=== PATIENT | male | born 1965 | race Caucasian/White ===

== ENCOUNTER 2018-08-18 08:02 | Day surgery (SDC) | payer OTHER, SELFPAY ==
[2017-07-14 16:20] VITALS: BMI 29.7
[2018-08-05 08:07] VITALS: BMI 29.5
[2018-08-18] VITALS (8 sets, daily range): BP systolic 119–148; BP diastolic 86–99; PULSE 78–84; RESP 12–20; TEMP 36.2–36.5; O2SAT 92–96; BMI 29.6
[2018-08-18] MEDS: LACTATED RINGERS 1,000 ML 42 ML IV (09:06)
[2018-08-18] MEDS: ALBUTEROL 2.5 MG/3 ML NEB (ADULT) INH (09:48)
[2018-08-18] MEDS: CEFAZOLIN 2 GM/100 ML FROZ.PIGGY IV (10:24)
[2018-08-18] MEDS: BUPIVACAINE 0.5% W/ EPI (PF) VIAL 30 ML INJ (11:06)
--- NOTE | 2018-08-18 12:05 | P.OP_ITS ---
Operative Date/Time/Diagnoses Date of procedure: 08/18/18 Time of procedure: 10:30 Pre-op diagnosis: Left basal thumb arthritis Post-op diagnosis: same Procedure & Clinicians Procedure: Left basal thumb LR TI using labral tape Same procedure as scheduled: Yes Indications: Arthritis to the left basal joint Surgeon: Roger Abernathy Cupola Repairer: Heather Salas Click Yes if Unassisted: No Anesthesia Type: General Operative Notes Findings: End-stage arthritic changes to the basal joint with large osteophytes. Closure Type: primary Specimen(s): none sent Prosthetic devices, grafts, tissues, transplants, or devices: Labral tape and 2 anchors Estimated Blood Loss (mL): 5 Blood products transfused: none Tourniquet time (min): 70 Procedure in detail: On date of service, the patient was met in the holding area. The operative site was signed and witnessed by the OR staff. The surgery was once again discussed with patient, and any remaining questions Were answered fully. Patient was taken back to the operating theater and placed on the operating table in a supine position. Great care was taken to ensure that all bony prominences were properly padded. A well-padded tourniquet was placed up along the upper extremity. A timeout was performed verifying patient's name, procedure, and operative site. The arm was prepped and draped in the normal sterile fashion. An Esmarch was used to exsanguinate the limb and the tourniquet was turned up to 250 mm mercury. A 15 blade was used to incise the skin only in a dorsal radial position. Pickups and tenotomy 3 used to dissect down through the fascial tissue. Great care was taken to ensure that the branches off the superficial radial nerve root identified and protected. Next, an interval was made between EPB and APL. The recurrent branch of the radial artery was identified and protected. The capsular tissues surrounding the basal joints was opened and released around the trapezium and a 360? fashion. This gave us good visualization of the basal joint as well as the trapezial scaphoid joint. Significant arthritis at the basal joints but no sign of any arthritis at the trapezial scaphoid joint. Next the trapezium was removed as well as any potential osteophytes. The wound was then copiously irrigated to remove any remaining bony fragments. A strip of FCR tendon was harvested. Guidewires were placed in the articular surface of the 1st and 2nd metacarpal. Positioning of the guidewires were verified with the mini C-arm. Once we were satisfied with our positioning, cannulated drill was then used to drill the tunnels for the anchors. The wound was copiously irrigated again. This allowed us to remove any remaining bony fragments. An anchor was then used to tenodesis 2 strands of labral tape as well as our tendon strip into the 1st metacarpal. The thumb was then distracted in adducted while the 2 strips of labral tape and the tendons were then tenodesed into the 2nd hole which was in the 2nd metacarpal. This provided a good suspension plasty of the basal joint and held the thumb out to the appropriate length. The wound was copiously irrigated once again and then closed in a layered fashion. The hand was cleaned, dried, and dressed. Thumb spica splint was applied patient was extubated and taken to the PACU in stable condition. Complications: none Condition: stable Disposition: PACU Plan for aftercare: Splint for 2 weeks. After 2 weeks a removable brace will be placed.
[2018-08-18] MEDS: HYDROMORPHONE 2 MG INJ 0.25 MG IV ×4 (12:18→12:42)
== END 2018-08-18 12:57 | disposition home or self-care (01) ==
PROVIDERS: PCP Preventive Medicine Occupational Medicine; Visit Provider Orthopaedic Surgery
PROC: (CPT 26540; principal; 2018-08-18 10:15)
DX: M18.10 Unilateral primary osteoarthritis of first carpometacarpal joint, unspecified hand (principal)
CPT/HCPCS: 25310; 25447; J0690; J1100; J1170; J2405; J2704; J3010; J7613

== ENCOUNTER → 2019-11-28 17:43 | Outpatient (CLI) | payer BC, SELFPAY ==
[2017-07-14 16:20] VITALS: BMI 29.7
--- NOTE | 2019-11-28 17:48 | DI.CT.S_ITS ---
PROCEDURE: CT ABDOMEN PELVIS W CON INDICATIONS: Lower abdominal pain, unspecified TECHNIQUE: After the administration of oral and intravenous contrast, 5 mm thick sections acquired from the diaphragms to the symphysis. 5 mm thick coronal and sagittal reformats were performed. For radiation dose reduction, the following was used: automated exposure control, adjustment of mA and/or kV according to patient size. COMPARISON: None. FINDINGS: Image quality: Excellent. ABDOMEN: Lung bases: Lung bases are clear. Heart size is normal. Solid organs: Liver is normal in size and enhancement. Gallbladder is within normal limits.. Biliary system is non-dilated. Pancreas enhances normally. Spleen is normal in size and enhancement. No adrenal nodules. Kidneys are normal in size and enhancement, without hydronephrosis. 3 millimeter nonobstructing stone noted in the lower pole of left kidney. Peritoneum and bowel: Stomach and small bowel are normal in caliber and wall thickness. Scattered diverticuli noted in the sigmoid colon without definite evidence of diverticulitis. Circumferential wall thickening involving the distal transverse colon, splenic flexure, left colon and sigmoid colon noted compatible with nonspecific colitis. No free air. Trace free fluid lower pelvis. Appendix is normal. Nodes and vessels: No retroperitoneal or mesenteric adenopathy. Aorta and inferior vena cava are normal in caliber. Miscellaneous: No ventral hernias. PELVIS: Genitourinary: Bladder wall thickness is normal. Miscellaneous: No inguinal hernias or adenopathy. Bones: No suspicious bony lesions. No vertebral body compression fractures. IMPRESSION: 1. Nonspecific colitis. Differential diagnosis includes infectious, inflammatory, ischemic and neoplastic etiologies. 2. Colon diverticulosis without evidence of diverticulitis. 3. No free air. Trace free fluid noted in the lower pelvis. 4. No evidence of appendicitis. Area 5. 3 millimeter nonobstructing left renal stone. Dictated by: Amena Neff MD, PhD on 11/28/2019 at 19:10 Approved by: Amena Neff MD, PhD on 11/28/2019 at 19:17
== END ==
PROVIDERS: PCP Family Medicine; Referring Provider Physician Assistant Medical; Visit Provider Physician Assistant Medical
DX: R10.30 Lower abdominal pain, unspecified (principal); K52.9 Noninfective gastroenteritis and colitis, unspecified; K57.90 Diverticulosis of intestine, part unspecified, without perforation or abscess without bleeding; N20.0 Calculus of kidney
CPT/HCPCS: 74177; Q9967

== ENCOUNTER 2019-12-01 12:09 | Inpatient (IN) | payer BC, SELFPAY ==
[2017-07-14 16:20] VITALS: BMI 29.7
[2019-12-01] VITALS (17 sets, daily range): BP systolic 126–157; BP diastolic 81–100; PULSE 77–105; RESP 13–25; TEMP 36.1–36.8; O2SAT 90–99; BMI 29.6
--- NOTE | 2019-12-01 12:41 | ED.ABDPAIN ---
HPI - Abdominal Pain General Chief Complaint: Abdominal Pain Stated Complaint: colitis,vomiting,pain Time Seen by Provider: 12/01/19 12:33 Source: patient Mode of arrival: Wheelchair History of Present Illness HPI narrative: Otherwise healthy 54-year-old gentleman presents with worsening abdominal pain. Pain began 4 days ago with mild discomfort. Three days ago he was seen in urgent care at [facility] and a CT scan was ordered. CT scan suggested a nonspecific colitis and he was started on antibiotics. He felt somewhat better for approximately 24 hours and then pain was again increasing. By this morning he is having persistent vomiting, abdominal distension, increasing pain, diarrhea and while waiting in the waiting room for the emergency department he describes a significant ?pop? in his abdomen. He currently is pale obviously in pain and profusely diaphoretic with hyperactive bowel tones. Related Data Home Medications Medication Instructions Recorded Confirmed ibuprofen 800 mg PO BEDTIME PRN 06/29/17 08/18/18 Previous Rx's Medication Instructions Recorded hydroxyzine pamoate [Vistaril] 25 mg PO TID-QID PRN #60 cap 08/18/18 oxycodone-acetaminophen [Percocet] 2 tab PO Q4-6H PRN #60 tab 08/18/18 Allergies Allergy/AdvReac Type Severity Reaction Status Date / Time No Known Drug Allergies Allergy Verified 12/01/19 12:14 Review of Systems Review of Systems Narrative: Remainder of review of systems including constitutional, ENT, cardiovascular, respiratory, GI, , musculoskeletal, skin, neurologic and psychiatric systems reviewed and are unremarkable except as noted in HPI. Patient History Medical History Arthritis (Acute) Colonoscopy planned (Acute) Diverticulosis (Acute) Gout (Acute) Nocturia (Acute) Numbness and tingling in both hands (Acute) Unilateral primary osteoarthritis of first carpometacarpal joint, unspecified hand (Acute) Surgical History H/O inguinal hernia repair (Acute) History of carpal tunnel surgery of left wrist (Acute) Hx of tonsillectomy (Acute) S/P cervical spinal fusion (Acute) [place] teeth removed (Acute) Social History household members: spouse Smoking Status: Current every day smoker alcohol intake: current Smoking Status: Current every day smoker alcohol intake frequency: 0-2 drinks per day Substance Use Type: marijuana Exam Narrative Exam Narrative: General: Significant distress with abdominal pain, profusely diaphoretic, pale but Able to give a complete and coherent history. Well-nourished well-developed HEENT: Moist mucous membranes, normal sclera with reactive pupils, Neck: No JVD, supple Respiratory: Lungs are clear to auscultation, no wheezing no rales no rhonchi. Full and symmetrical air movement Cardiac: Regular rate and rhythm no murmurs no bruits Abdomen: Mildly distended, diffusely tender without rebound or guarding, hyperactive bowel tones, no flank pain Skin: Pale and diaphoretic, no rashes Neurologic: Grossly neurologically intact with no obvious asymmetries or abnormalities Extremities: No trauma, well perfused Psych: Cooperative, appropriate insight and affect Initial Vital Signs Initial Vital Signs: Vital Signs Temperature 97 F L 12/01/19 12:14 Pulse Rate 105 H 12/01/19 12:14 Respiratory Rate 16 12/01/19 12:14 Pulse Oximetry 99 12/01/19 12:14 Course Orders Ordered: ED Orders 12/01/19 12:15 EKG-12 Lead Stat 12/01/19 12:39 Complete Blood Count AUTO DIFF Stat Comprehensive Metabolic Panel Stat Lactate (Lactic Acid) Stat Lipase Stat Magnesium Stat Partial Thromboplastin Time Stat Procalcitonin Stat Prothrombin Time INR Stat 12/01/19 12:53 CT abdomen pelvis w con Stat 12/01/19 13:00 GI Panel (Film Array) Stat 12/01/19 13:09 Blood Culture Stat 12/01/19 15:19 Urine Microscopic Stat 12/01/19 15:51 COVID19 -ED/INPAT/OR/L&D Stat Discontinued Medications Hydromorphone HCl (Dilaudid) 1 mg IV NOW ONE Stop: 12/01/19 12:53 Last Admin: 12/01/19 13:18 Dose: 1 mg Documented by: HUMPHREY Hydromorphone HCl (Dilaudid) 1 mg IV NOW ONE Stop: 12/01/19 14:59 Last Admin: 12/01/19 15:01 Dose: 1 mg Documented by: HUMPHREY Sodium Chloride (Normal Saline 0.9%) 1,000 mls @ 1,000 mls/hr IV BOLUS ONE Stop: 12/01/19 13:51 Last Admin: 12/01/19 13:18 Dose: 1,000 mls/hr Documented by: HUMPHREY Levofloxacin (Levaquin) 750 mg in 150 mls @ 100 mls/hr IV NOW ONE Stop: 12/01/19 14:22 Last Admin: 12/01/19 14:49 Dose: 100 mls/hr Documented by: HUMPHREY Metronidazole (Flagyl) 500 mg in 100 mls @ 100 mls/hr IV NOW ONE Stop: 12/01/19 13:52 Last Infusion: 12/01/19 14:44 Dose: 0 mls/hr Documented by: Admin: 12/01/19 13:19 Dose: 100 mls/hr Documented by: HUMPHREY Sodium Chloride (Normal Saline 0.9%) 1,000 mls @ 1,000 mls/hr IV BOLUS ONE Stop: 12/01/19 14:54 Last Admin: 12/01/19 15:41 Dose: 1,000 mls/hr Documented by: Ondansetron HCl (Zofran) 4 mg IV NOW ONE Stop: 12/01/19 12:53 Last Admin: 12/01/19 13:19 Dose: 4 mg Documented by: HUMPHREY Vital Signs Vital signs: Vital Signs - 8 hr 12/01/19 12:14 12/01/19 12:46 12/01/19 12:59 Temperature 97 F L Pulse Rate 105 H 95 H 93 H Respiratory Rate 16 20 19 Blood Pressure 151/100 H 152/98 H Pulse Oximetry 99 96 96 12/01/19 13:00 12/01/19 13:24 12/01/19 13:30 Temperature Pulse Rate 93 H 88 85 Respiratory Rate 19 23 25 H Blood Pressure 147/90 H Pulse Oximetry 95 93 92 12/01/19 13:31 12/01/19 14:07 12/01/19 14:10 Temperature Pulse Rate 86 89 87 Respiratory Rate 20 21 Blood Pressure 142/100 H 146/95 H Pulse Oximetry 94 94 94 12/01/19 14:30 12/01/19 15:00 Temperature Pulse Rate 82 80 Respiratory Rate 14 23 Blood Pressure 135/92 H 138/91 H Pulse Oximetry 94 95 MDM - Abdominal Pain Lab Data Attestation: I reviewed the patient's lab results. Result diagrams: 12/01/19 12:39 12/01/19 12:39 Labs: Lab Results 12/01/19 12/01/19 12/01/19 Range/Units 12:39 12:39 12:39 WBC 13.4 H (4.5-11.0) X10^3/uL RBC 6.43 H (4.5-5.9) X10^6/uL Hgb 20.5 H (13.5-17.5) g/dL Hct 58.6 H (41-53) % MCV 91.1 (80-100) fL MCH 31.9 (26-34) PG MCHC 35.0 (30-36) % RDW 13.4 (11.6-14.8) % Plt Count 348 (150-400) X10^3/uL Neut % (Auto) Not Reportable Lymph % (Auto) Not Reportable Preston % (Auto) Not Reportable Eos % (Auto) Not Reportable Baso % (Auto) Not Reportable Lymph # (Auto) Not Reportable Preston # (Auto) Not Reportable Baso # (Auto) Not Reportable Total Counted 100 Seg Neutrophils % 78.0 H (38-70) % Band Neutrophils % 2.0 L (3-7) % Lymphocytes % (Manual) 8.0 L (25-45) % Atypical Lymphs % 4.0 H ( - 0) % Monocytes % (Manual) 6.0 (2-11) % Eosinophils % (Manual) 2.0 (2-4) % Neutrophils # (Manual) 16368 H (6969-7145) /uL RBC Morphology Normal morphology PT 11.6 (10.1-12.7) SECONDS INR 1.0 (0.9-1.3) APTT 38 H (26.4-36.2) SECONDS Sodium 138 (137-145) mmol/L Potassium 4.5 (3.4-5.1) mmol/L Chloride 98 (98-107) mmol/L Carbon Dioxide 26 (22-32) mmol/L BUN 16 (9-20) mg/dL Creatinine 0.81 (0.66-1.25) mg/dL Estimated GFR > 60.0 (>60) mL/min BUN/Creatinine Ratio 19.8 (6-22) Glucose 112 H (70-100) mg/dL Calcium 10.4 H (8.4-10.2) mg/dL Magnesium (1.6-2.3) mg/dL Total Bilirubin 0.9 (0.2-1.3) mg/dL AST 25 (17-59) IU/L ALT 32 (<50) IU/L Alkaline Phosphatase 92 (38-126) U/L Total Protein 8.8 H (6.3-8.2) g/dL Albumin 5.1 H (3.5-5.0) g/dL Globulin 3.7 (1.7-4.1) g/dL Albumin/Globulin Ratio 1.4 (1.0-2.8) Lipase 72 (23-300) U/L Procalcitonin (<0.5) ng/mL 12/01/19 12/01/19 Range/Units 12:39 12:39 WBC (4.5-11.0) X10^3/uL RBC (4.5-5.9) X10^6/uL Hgb (13.5-17.5) g/dL Hct (41-53) % MCV (80-100) fL MCH (26-34) PG MCHC (30-36) % RDW (11.6-14.8) % Plt Count (150-400) X10^3/uL Neut % (Auto) Lymph % (Auto) Preston % (Auto) Eos % (Auto) Baso % (Auto) Lymph # (Auto) Preston # (Auto) Baso # (Auto) Total Counted Seg Neutrophils % (38-70) % Band Neutrophils % (3-7) % Lymphocytes % (Manual) (25-45) % Atypical Lymphs % ( - 0) % Monocytes % (Manual) (2-11) % Eosinophils % (Manual) (2-4) % Neutrophils # (Manual) (0433-3193) /uL RBC Morphology PT (10.1-12.7) SECONDS INR (0.9-1.3) APTT (26.4-36.2) SECONDS Sodium (137-145) mmol/L Potassium (3.4-5.1) mmol/L Chloride (98-107) mmol/L Carbon Dioxide (22-32) mmol/L BUN (9-20) mg/dL Creatinine (0.66-1.25) mg/dL Estimated GFR (>60) mL/min BUN/Creatinine Ratio (6-22) Glucose (70-100) mg/dL Calcium (8.4-10.2) mg/dL Magnesium 2.5 H (1.6-2.3) mg/dL Total Bilirubin (0.2-1.3) mg/dL AST (17-59) IU/L ALT (<50) IU/L Alkaline Phosphatase (38-126) U/L Total Protein (6.3-8.2) g/dL Albumin (3.5-5.0) g/dL Globulin (1.7-4.1) g/dL Albumin/Globulin Ratio (1.0-2.8) Lipase Cancelled (23-300) U/L Procalcitonin < 0.05 (<0.5) ng/mL Point of care testing: Urine Dip Bedside Urine Glucose Negative Bedside Urine Bilirubin + 1 Bedside Urine Ketone +/- 5 Urine Specific Buras 1.010 Bedside Urine Occult Blood - Negative Bedside Urine pH 6.0 Bedside Urine Protein + 30 Bedside Urine Urobilinogen +/- 1mg Bedside Urine Nitrite - Negative Bedside Urine Leukocytes - Negative Esterase Imaging Data Abdominal CT from 11/28/2019: Radiologist's Impression: FINDINGS: Image quality: Excellent. ABDOMEN: Lung bases: Lung bases are clear. Heart size is normal. Solid organs: Liver is normal in size and enhancement. Gallbladder is within normal limits.. Biliary system is non-dilated. Pancreas enhances normally. Spleen is normal in size and enhancement. No adrenal nodules. Kidneys are normal in size and enhancement, without hydronephrosis. 3 millimeter nonobstructing stone noted in the lower pole of left kidney. Peritoneum and bowel: Stomach and small bowel are normal in caliber and wall thickness. Scattered diverticuli noted in the sigmoid colon without definite evidence of diverticulitis. Circumferential wall thickening involving the distal transverse colon, splenic flexure, left colon and sigmoid colon noted compatible with nonspecific colitis. No free air. Trace free fluid lower pelvis. Appendix is normal. Nodes and vessels: No retroperitoneal or mesenteric adenopathy. Aorta and inferior vena cava are normal in caliber. Miscellaneous: No ventral hernias. PELVIS: Genitourinary: Bladder wall thickness is normal. Miscellaneous: No inguinal hernias or adenopathy. Bones: No suspicious bony lesions. No vertebral body compression fractures. IMPRESSION: 1. Nonspecific colitis. Differential diagnosis includes infectious, inflammatory, ischemic and neoplastic etiologies. 2. Colon diverticulosis without evidence of diverticulitis. 3. No free air. Trace free fluid noted in the lower pelvis. 4. No evidence of appendicitis. Area 5. 3 millimeter nonobstructing left renal stone. Dictated by: Amena Neff MD, PhD on 11/28/2019 at 19:[address] scan from 12/01/2019: Radiologist's Impression: FINDINGS: Image quality: Excellent. ABDOMEN: Lung bases: Minimal right basilar atelectasis versus scarring, unchanged. Heart size is normal. Solid organs: Liver is normal in size and enhancement. Gallbladder is unremarkable . Biliary system is non-dilated. Pancreas enhances normally. Spleen is normal in size and enhancement. No adrenal nodules. Kidneys are normal in size and enhancement, without hydronephrosis. Peritoneum and bowel: Comparison is made to the prior study dated 11/28/19. The descending colon is now filled with contrast. At the rectosigmoid junction, the appearance is now suspicious for a possible circumferential colon cancer resulting in mild colonic obstruction. This occurs in an area of diffuse wall thickening throughout the sigmoid with multiple sigmoid diverticuli. It is possible that the findings may all represent diverticulitis. However, underlying neoplasm is suspected. The colon proximal to the rectosigmoid junction is now diffusely dilated. The cecum measures 10.0 cm. There is a 2nd area of circumferential narrowing at the rectosigmoid junction which may potentially represent peristalsis. However, a rectosigmoid lesion is not excluded. Nodes and vessels: No retroperitoneal or mesenteric adenopathy. Aorta and inferior vena cava are normal in caliber. Scattered somewhat prominent mesenteric lymph nodes are likely reactive in nature. Miscellaneous: No ventral hernias. PELVIS: Genitourinary: Bladder wall thickness is normal. Miscellaneous: No inguinal hernias or adenopathy. Bones: No suspicious bony lesions. No vertebral body compression fractures. IMPRESSION: 1. On today's study, the appearance is now suspicious for a possible constricting colonic malignancy at the junction between the descending colon and sigmoid, resulting in a degree of colonic obstruction. Alternatively, this appearance may simply represent diverticulitis. Direct visualization with colonoscopy is recommended when clinical symptomatology allows 2. There is also a possible constricting rectosigmoid lesion. 3. No evidence of metastatic disease. Dictated by: Osmin Mckeon M.D. on 12/01/2019 at 14:34 MDM Narrative Medical decision making narrative: 2pm patient's fluids or just getting started. Pain is better controlled. He is no longer profusely diaphoretic. Labs do indicate significant volume constriction will add a 2nd L of fluid while waiting for CT scan results. [address] Antunez. Will admit pt and come to ER to see patient. colonic obstruction. Admit for further diagnosis and treatment. Care, plan and findings are discussed with patient and his . Safe for transfer to the floor. Discharge Plan Departure Patient Disposition: Admitted As Inpatient Clinical Impression: Colitis, Colon obstruction Referrals: Thiago Patel MD [Primary Care Provider] -
--- NOTE | 2019-12-01 12:45 | PC.NURSE ---
Provider aware of patient. Restless, pain and diaphoretic. Reports feeling like something burst
--- NOTE | 2019-12-01 12:53 | DI.CT.S_ITS ---
PROCEDURE: CT ABDOMEN PELVIS W CON INDICATIONS: worsening pain, compare to CT 11/27 TECHNIQUE: After the administration of oral and intravenous contrast, 5 mm thick sections acquired from the diaphragms to the symphysis. 5 mm thick coronal and sagittal reformats were performed. For radiation dose reduction, the following was used: automated exposure control, adjustment of mA and/or kV according to patient size. COMPARISON: [facility], CT, CT ABDOMEN PELVIS W CON, 11/28/2019, 18:55. FINDINGS: Image quality: Excellent. ABDOMEN: Lung bases: Minimal right basilar atelectasis versus scarring, unchanged. Heart size is normal. Solid organs: Liver is normal in size and enhancement. Gallbladder is unremarkable . Biliary system is non-dilated. Pancreas enhances normally. Spleen is normal in size and enhancement. No adrenal nodules. Kidneys are normal in size and enhancement, without hydronephrosis. Peritoneum and bowel: Comparison is made to the prior study dated 11/28/19. The descending colon is now filled with contrast. At the rectosigmoid junction, the appearance is now suspicious for a possible circumferential colon cancer resulting in mild colonic obstruction. This occurs in an area of diffuse wall thickening throughout the sigmoid with multiple sigmoid diverticuli. It is possible that the findings may all represent diverticulitis. However, underlying neoplasm is suspected. The colon proximal to the rectosigmoid junction is now diffusely dilated. The cecum measures 10.0 cm. There is a 2nd area of circumferential narrowing at the rectosigmoid junction which may potentially represent peristalsis. However, a rectosigmoid lesion is not excluded. Nodes and vessels: No retroperitoneal or mesenteric adenopathy. Aorta and inferior vena cava are normal in caliber. Scattered somewhat prominent mesenteric lymph nodes are likely reactive in nature. Miscellaneous: No ventral hernias. PELVIS: Genitourinary: Bladder wall thickness is normal. Miscellaneous: No inguinal hernias or adenopathy. Bones: No suspicious bony lesions. No vertebral body compression fractures. IMPRESSION: 1. On today's study, the appearance is now suspicious for a possible constricting colonic malignancy at the junction between the descending colon and sigmoid, resulting in a degree of colonic obstruction. Alternatively, this appearance may simply represent diverticulitis. Direct visualization with colonoscopy is recommended when clinical symptomatology allows 2. There is also a possible constricting rectosigmoid lesion. 3. No evidence of metastatic disease. Dictated by: Osmin Mckeon M.D. on 12/01/2019 at 14:34 Approved by: Osmin Mckeon M.D. on 12/01/2019 at 14:41
[2019-12-01 12:56] LABS: Hematocrit 58.6 % (41-53); Hemoglobin 20.5 g/dL (13.5-17.5); Mean Corpuscular Hemoglobin 31.9 PG (26-34); Mean Corpuscular Volume 91.1 fL (80-100); Platelet Count 348 X10^3/uL (150-400); Prothrombin Time 11.6 SECONDS (10.1-12.7); Red Blood Cell Count 6.43 X10^6/uL (4.5-5.9); Red Cell Distribution Width 13.4 % (11.6-14.8); White Blood Cell Count 13.4 X10^3/uL (4.5-11.0)
[2019-12-01 12:57] LABS: Add Manual Diff / Slide Review YES
[2019-12-01 12:58] LABS: PTT Partial Thromboplastin Tim 38 SECONDS (26.4-36.2)
[2019-12-01 13:00] LABS: Alanine Aminotransferase 32 IU/L (<50); Albumin 5.1 g/dL (3.5-5.0); Albumin Globulin Ratio 1.4 (1.0-2.8); Alkaline Phosphatase 92 U/L (38-126); Aspartate Aminotransferase 25 IU/L (17-59); BUN Creatinine Ratio 19.8 (6-22); Bilirubin Total 0.9 mg/dL (0.2-1.3); Blood Urea Nitrogen 16 mg/dL (9-20); Calcium 10.4 mg/dL (8.4-10.2); Carbon Dioxide 26 mmol/L (22-32); Chloride 98 mmol/L (98-107); Estimated Glomerular Filt Rate > 60.0 mL/min (>60); Globulin 3.7 g/dL (1.7-4.1); Glucose 112 mg/dL (70-100); HEMOLYSIS < 15 (0-50); Lipase 72 U/L (23-300); Potassium 4.5 mmol/L (3.4-5.1); Sodium 138 mmol/L (137-145); Total Protein 8.8 g/dL (6.3-8.2)
[2019-12-01] MEDS: HYDROMORPHONE 1 MG INJ IV ×4 (13:18→21:51)
[2019-12-01] MEDS: SODIUM CHLORIDE 0.9% 1,000 ML 1000 ML IV ×2 (13:18→15:41)
[2019-12-01] MEDS: ONDANSETRON 4 MG/2 ML INJ IV (13:19)
[2019-12-01] MEDS: metroNIDAZOLE 500 MG/100 ML PIGGYBACK 100 MG IV (13:19)
[2019-12-01 13:31] LABS: Magnesium 2.5 mg/dL (1.6-2.3)
[2019-12-01 13:46] LABS: Neutrophils Absolute Manual 10720 /uL (3000-5900); Procalcitonin < 0.05 ng/mL (<0.5); RBC Morphology Normal Morphology; Total Cells Counted 100
[2019-12-01] MEDS: levoFLOXacin 750 MG/150 ML PIGGYBACK 100 MG IV (14:49)
[2019-12-01 15:32] LABS: Bacteria Urine None Seen
[2019-12-01 15:54] LABS: Culture Indicated Urine Cult Not Indicated; Ictotest Urine Negative (Negative); RBC Urine 0-1/HPF (0-5/HPF); WBC Urine 0-1/HPF (0-5/HPF)
[2019-12-01 16:03] LABS: Lactate (Lactic Acid) 1.6 mmol/L (0.7-2.1)
[2019-12-01 16:06] LABS: Adenovirus F 40/41 Not Detected (Not Detect); Astrovirus Not Detected (Not Detect); Campylobacter Not Detected (Not Detect); Clostridium difficile toxin AB Not Detected (Not Detect); Cryptosporidium Not Detected (Not Detect); Cyclospora cayetanensis Not Detected (Not Detect); Entamoeba histolytica Not Detected (Not Detect); Enteroaggregative E.coli Not Detected (Not Detect); Enteropathogenic E.coli Not Detected (Not Detect); Enterotoxigenic E.coli It/st Not Detected (Not Detect); Giardia lamblia Not Detected (Not Detect); Norovirus GI/GII Not Detected (Not Detect); Plesiomonsa shigelloides Not Detected (Not Detect); Rotavirus A Not Detected (Not Detect); Salmonella Not Detected (Not Detect); Sapovirus Not Detected (Not Detect); Shiga-like toxin-prod E.coli Not Detected (Not Detect); Shigella/Enteroinvasive E.coli Not Detected (Not Detect); Vibrio Not Detected (Not Detect); Vibrio cholerae Not Detected (Not Detect); Yersinia enterocolitica Not Detected (Not Detect)
--- NOTE | 2019-12-01 16:50 | P.HP_ITS ---
History of Present Illness History of Present Illness Date Patient Seen: 12/01/19 Time Patient Seen: 16:50 Chief complaint: colitis,vomiting,pain Narrative: 54-year-old white male comes emergency department today with increasing abdominal distension crampy abdominal pain and vomiting. He went to an urgent care center 4 [address] a [address] scan done for the same symptoms. The 1st CT scan showed possible colitis. However patient has had a repeat CT scan in the ER today which reveals colonic partial obstruction and a suspicious mass lesion in the rectosigmoid causing that partial obstruction. Patient is complaining of abdominal pain and vomiting in the ED. In careful questioning the patient relates to having similar symptoms on and off for the past 6 months. He had a prior colonoscopy 5 years ago which showed some polyps which were removed. Patient History Medical History Arthritis (Acute) Colonoscopy planned (Acute) Diverticulosis (Acute) Gout (Acute) Nocturia (Acute) Numbness and tingling in both hands (Acute) Unilateral primary osteoarthritis of first carpometacarpal joint, unspecified hand (Acute) Surgical History H/O inguinal hernia repair (Acute) History of carpal tunnel surgery of left wrist (Acute) Hx of tonsillectomy (Acute) S/P cervical spinal fusion (Acute) Louise teeth removed (Acute) Family & Social History Social History: household members spouse Safety & Behavioral: Feels Safe in Current Yes Environment Been Physically Hurt or No Threatened By a Person Tobacco & Substance use: Tobacco type cigarettes,cannabis/marijuana Smoking Status Current every day smoker alcohol intake current alcohol intake frequency 0-2 drinks per day Substance Use Type marijuana Meds Home Medications and Allergies Home Medications Medication Instructions Recorded Confirmed Type ibuprofen 800 mg PO BEDTIME PRN 06/29/18 08/18/18 History hydroxyzine pamoate [Vistaril] 25 mg PO TID-QID PRN #60 cap 08/18/18 Rx oxycodone-acetaminophen [Percocet] 2 tab PO Q4-6H PRN #60 tab 08/18/18 Rx Allergies Allergy/AdvReac Type Severity Reaction Status Date / Time No Known Drug Allergies Allergy Verified 12/01/19 12:14 Review of Systems Review of Systems ROS: Yes All systems reviewed with the patient and are negative except as otherwise documented Exam Vital Signs (past 8 hours): - 12/01/19 12:14 12/01/19 12:46 12/01/19 12:59 Temperature 97 F L Pulse Rate 105 H 95 H 93 H Respiratory Rate 16 20 19 Blood Pressure 151/100 H 152/98 H Pulse Oximetry 99 96 96 12/01/19 13:00 12/01/19 13:24 12/01/19 13:30 Temperature Pulse Rate 93 H 88 85 Respiratory Rate 19 23 25 H Blood Pressure 147/90 H Pulse Oximetry 95 93 92 12/01/19 13:31 12/01/19 14:07 12/01/19 14:10 Temperature Pulse Rate 86 89 87 Respiratory Rate 20 21 Blood Pressure 142/100 H 146/95 H Pulse Oximetry 94 94 94 12/01/19 14:30 12/01/19 15:00 12/01/19 15:30 Temperature Pulse Rate 82 80 83 Respiratory Rate 14 23 13 Blood Pressure 135/92 H 138/91 H 126/81 Pulse Oximetry 94 95 90 L 12/01/19 16:00 Temperature Pulse Rate 93 H Respiratory Rate 20 Blood Pressure 134/99 H Pulse Oximetry 95 Oxygen Delivery Method Room Air Narrative Exam Narrative: Patient is alert and oriented. Complaining of moderate abdominal pain. He is afebrile. Lungs are distant breath sounds no rales or wheezes Heart regular rhythm no murmur Abdomen is markedly distended and tympanitic. He has particular tenderness in the right lower quadrant. No masses are palpated. Rectal reveals brown liquid stool. Not grossly bloody. Neurologic and extremities grossly intact. Objective Labs Result Diagrams: 12/01/19 12:39 12/01/19 12:39 Labs: Laboratory Results - last 24 hr 12/01/19 12/01/19 12/01/19 12:39 12:39 12:39 WBC 13.4 H RBC 6.43 H Hgb 20.5 H Hct 58.6 H MCV 91.1 MCH 31.9 MCHC 35.0 RDW 13.4 Plt Count 348 Neut % (Auto) Not Reportable Lymph % (Auto) Not Reportable [place] % (Auto) Not Reportable Eos % (Auto) Not Reportable Baso % (Auto) Not Reportable Lymph # (Auto) Not Reportable [place] # (Auto) Not Reportable Baso # (Auto) Not Reportable Total Counted 100 Seg Neutrophils % 78.0 H Band Neutrophils % 2.0 L Lymphocytes % (Manual) 8.0 L Atypical Lymphs % 4.0 H Monocytes % (Manual) 6.0 Eosinophils % (Manual) 2.0 Neutrophils # (Manual) 76191 H RBC Morphology Normal morphology PT 11.6 INR 1.0 APTT 38 H Sodium 138 Potassium 4.5 Chloride 98 Carbon Dioxide 26 BUN 16 Creatinine 0.81 Estimated GFR > 60.0 BUN/Creatinine Ratio 19.8 Glucose 112 H Lactate Calcium 10.4 H Magnesium Total Bilirubin 0.9 AST 25 ALT 32 Alkaline Phosphatase 92 Total Protein 8.8 H Albumin 5.1 H Globulin 3.7 Albumin/Globulin Ratio 1.4 Lipase 72 Procalcitonin Ur Bilirubin Confirm Urine RBC Urine WBC Urine Bacteria Ur Culture Indicated? Stl C. cayetanensis PCR Stool Rotavirus (PCR) Stool Adenovirus (PCR) Stool Astrovirus (PCR) Stool Cryptosporidium PCR Stl E.coli Shiga Tox PCR St Sh/Enteroin Ecoli PCR Stool E coli O157 PCR Stl Enterotoxigenic E PCR Stool EPEC (PCR) Stl E. histolytica PCR Stool Giardia Lamblia PCR Stool Sapovirus (PCR) Stl P. shigelloides PCR St Y.enterocolitica PCR Stool Vibrio (PCR) Stl Vibrio cholerae PCR Stl Enteroaggr Ecoli PCR Stl Norovirus GI/GII PCR Campylobacter (PCR) C. difficile Tox (PCR) Salmonella (PCR) 12/01/19 12/01/19 12/01/19 12:39 12:39 12:39 WBC RBC Hgb Hct MCV MCH MCHC RDW Plt Count Neut % (Auto) Lymph % (Auto) [place] % (Auto) Eos % (Auto) Baso % (Auto) Lymph # (Auto) [place] # (Auto) Baso # (Auto) Total Counted Seg Neutrophils % Band Neutrophils % Lymphocytes % (Manual) Atypical Lymphs % Monocytes % (Manual) Eosinophils % (Manual) Neutrophils # (Manual) RBC Morphology PT INR APTT Sodium Potassium Chloride Carbon Dioxide BUN Creatinine Estimated GFR BUN/Creatinine Ratio Glucose Lactate 1.6 Calcium Magnesium 2.5 H Total Bilirubin AST ALT Alkaline Phosphatase Total Protein Albumin Globulin Albumin/Globulin Ratio Lipase Cancelled Procalcitonin < 0.05 Ur Bilirubin Confirm Urine RBC Urine WBC Urine Bacteria Ur Culture Indicated? Stl C. cayetanensis PCR Stool Rotavirus (PCR) Stool Adenovirus (PCR) Stool Astrovirus (PCR) Stool Cryptosporidium PCR Stl E.coli Shiga Tox PCR St Sh/Enteroin Ecoli PCR Stool E coli O157 PCR Stl Enterotoxigenic E PCR Stool EPEC (PCR) Stl E. histolytica PCR Stool Giardia Lamblia PCR Stool Sapovirus (PCR) Stl P. shigelloides PCR St Y.enterocolitica PCR Stool Vibrio (PCR) Stl Vibrio cholerae PCR Stl Enteroaggr Ecoli PCR Stl Norovirus GI/GII PCR Campylobacter (PCR) C. difficile Tox (PCR) Salmonella (PCR) 12/01/19 12/01/19 13:00 15:19 WBC RBC Hgb Hct MCV MCH MCHC RDW Plt Count Neut % (Auto) Lymph % (Auto) [place] % (Auto) Eos % (Auto) Baso % (Auto) Lymph # (Auto) [place] # (Auto) Baso # (Auto) Total Counted Seg Neutrophils % Band Neutrophils % Lymphocytes % (Manual) Atypical Lymphs % Monocytes % (Manual) Eosinophils % (Manual) Neutrophils # (Manual) RBC Morphology PT INR APTT Sodium Potassium Chloride Carbon Dioxide BUN Creatinine Estimated GFR BUN/Creatinine Ratio Glucose Lactate Calcium Magnesium Total Bilirubin AST ALT Alkaline Phosphatase Total Protein Albumin Globulin Albumin/Globulin Ratio Lipase Procalcitonin Ur Bilirubin Confirm Negative Urine RBC 0-1/hpf Urine WBC 0-1/hpf Urine Bacteria None seen Ur Culture Indicated? Cult not indicated Stl C. cayetanensis PCR Not detected Stool Rotavirus (PCR) Not detected Stool Adenovirus (PCR) Not detected Stool Astrovirus (PCR) Not detected Stool Cryptosporidium PCR Not detected Stl E.coli Shiga Tox PCR Not detected St Sh/Enteroin Ecoli PCR Not detected Stool E coli O157 PCR Not Reportable Stl Enterotoxigenic E PCR Not detected Stool EPEC (PCR) Not detected Stl E. histolytica PCR Not detected Stool Giardia Lamblia PCR Not detected Stool Sapovirus (PCR) Not detected Stl P. shigelloides PCR Not detected St Y.enterocolitica PCR Not detected Stool Vibrio (PCR) Not detected Stl Vibrio cholerae PCR Not detected Stl Enteroaggr Ecoli PCR Not detected Stl Norovirus GI/GII PCR Not detected Campylobacter (PCR) Not detected C. difficile Tox (PCR) Not detected Salmonella (PCR) Not detected Assessment & Plan Assessment & Plan narrative: Patient has radiographic evidence of partial colonic obstruction with a markedly distended cecum however he does have gas in the rectal vault. He is passing liquid stool and flatus. The imaging reveals what appears to be an apple-core lesion in the sigmoid colon. 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 My plan is and rehydration with intravenous fluids he is a hemoglobin is 20 hematocrit 56 indicative of marked dehydration. Renal function normal with normal electrolytes. I will try to do some distal cleansing with several enemas tonight and then do a flexible sigmoidoscopy tomorrow morning. I will also reimage the cecum. If this distention increases a may need emergent decompression surgically. 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 Patient and his understand the situation and have no unanswered questions.
[2019-12-01] MEDS: CALCIUM CARBONATE 500 MG TAB 1000 MG PO ×2 (17:04→20:18)
[2019-12-01] MEDS: KETOROLAC 15 MG/ML VIAL IV (17:04)
[2019-12-01] MEDS: SODIUM CHLORIDE 0.45% 1,000 ML 100 ML IV (17:04)
[2019-12-01] MEDS: CEFTRIAXONE 1 GM/50 ML FROZ.PIGGY IV (17:04)
[2019-12-01 17:25] LABS: COVID19 -Nasal RAPID Negative (Negative)
--- NOTE | 2019-12-01 18:43 | PC.NURSE ---
1630 Pt admitted to 228 per stretcher from ED. C/O abdominal pain and cramping 09/14. IV to R AC NS infusing, changed to 1/2NS @ 100mlhr.Oriented to environment. Admission assessment completed. MRSA swab sent.
[2019-12-01] MEDS: DOCUSATE 100 MG CAPSULE PO (20:18)
--- NOTE | 2019-12-01 22:23 | PC.NURSE ---
shift note: Enemas x 3 given, stool still brownish green after 3rd one. C/O increased right sided abdominal pain, medicated with Dilaudid with some relief. Explained to pt that one or two more enemas may be necessary.
[2019-12-02] VITALS (39 sets, daily range): BP systolic 98–156; BP diastolic 49–93; PULSE 75–166; RESP 10–34; TEMP 36.2–37.6; O2SAT 85–100
--- NOTE | 2019-12-02 | PATH_ITS ---
[facility] Accession Number: [id number] . 01 Material submitted: . sigmoid colon - OBSTRUCTING SIGMOID MASS . 01 Clinical history: . COLITIS, VOMITING, PAIN . 02 Diagnosis: Obstructing Sigmoid Colon Mass, Segmental Resection: Diverticulosis with diverticulitis. Two benign lymph nodes with foreign body-type granulomas, consistent with ruptured diverticulum. Negative for dysplasia or malignancy. MRV 12/07/2019 1408 Local . 02 Electronically signed: . Travis Hurley MD, PhD, Pathologist NPI- [id number] . 01 Gross description: . Received in formalin, labeled obstructing sigmoid mass, and consists of a 20 cm in length portion of colon with two stapled margins and a moderate amount of attached mesenteric adipose tissue. The serosa is cardona-pink and smooth with a 7.0 x 6.0 cm firm focally puckered area with fibrinous adhesions. The specimen is opened to reveal a cardona-pink to cardona-green mucosa with normal mucosal folds. There is a 12 cm in length portion of firm diffusely thickened muscularis propria measuring up to 1.0 cm in thickness. Multiple uncomplicated diverticula are identified within this area. The remaining wall thickness averages 0.4 cm. The luminal circumference ranges from 3.0 to 8.0 cm (presumed proximal portion of specimen). Sectioning through the attached adipose tissue reveals two lymph nodes measuring 0.2 and 0.3 cm. Technology Instructor sections are submitted. . A1: presumed proximal margin, pharmaceutical specialty representative perpendicular sections (blue). A2: presumed distal margin (black). A3-A6: pharmaceutical specialty representative diverticula. A7: pharmaceutical specialty representative colon (dilated portion). A8: two lymph nodes. ([id number]) /MRV 12/06/2019 1310 Local . 02 Pathologist provided ICD-10: K57.20 . 02 CPT . 172878 Performed at: 01 [facility] [address] [place] [address], [place], [place] [id number] MD Adalberto Miller MD Phone: [phone] Performed at: [facility] [id number] [place], [place] [id number] MD Caroline Chen MD Phone: [phone]
[2019-12-02] MEDS: KETOROLAC 15 MG/ML VIAL IV (00:10)
[2019-12-02] MEDS: CALCIUM CARBONATE 500 MG TAB 1000 MG PO ×2 (00:11→04:29)
[2019-12-02] MEDS: HYDROMORPHONE 1 MG INJ IV ×8 (00:51→23:36)
[2019-12-02] MEDS: CEFTRIAXONE 1 GM/50 ML FROZ.PIGGY IV ×2 (04:29→13:00)
[2019-12-02 04:50] LABS: Add Manual Diff / Slide Review NO; Basophils Absolute Auto 100 /uL (0-100); Basophils Percent Auto 0.7 % (0-2); Eosinophils Absolute Auto 100 /uL (0-450); Eosinophils Percent Auto 1.4 % (2-4); Hematocrit 46.2 % (41-53); Hemoglobin 15.9 g/dL (13.5-17.5); Lymphocytes Absolute Auto 1500 /uL (1100-4500); Lymphocytes Percent Auto 16.3 % (25-40); Mean Corpuscular HGB Conc 34.3 % (30-36); Mean Corpuscular Hemoglobin 31.9 PG (26-34); Mean Corpuscular Volume 92.9 fL (80-100); Monocytes Absolute Auto 900 /uL (0-900); Monocytes Percent Auto 9.7 % (3-14); Neutrophils Absolute Auto 6800 /uL (1500-7000); Neutrophils Percent Auto 71.9 % (50-75); Platelet Count 293 X10^3/uL (150-400); Red Blood Cell Count 4.97 X10^6/uL (4.5-5.9); Red Cell Distribution Width 13.1 % (11.6-14.8); White Blood Cell Count 9.4 X10^3/uL (4.5-11.0)
[2019-12-02] MEDS: PANTOPRAZOLE 20 MG TABLET PO (05:32)
[2019-12-02] MEDS: SODIUM CHLORIDE 0.45% 1,000 ML 100 ML IV (05:37)
--- NOTE | 2019-12-02 06:11 | PC.NURSE ---
shift manager note: Patient has had sever abdominal pain throughout the shift, rating it a 7-8/10. Patient has been medicated multiple times with PRN pain medication including Ketorolac and Hydromorphone. Patient feels his pain is localized to right side of abdomen where yesterday he felt a pop. Patient with wheezing on auscultation in bilateral bases and upper airway. 2L of oxygen placed on patient while he slept due to sats dropping to 88% on RA. Sats currently 93%. Patient also administered a fleet enema at beginning of the shift for colonoscopy prep, per physician orders. Throughout the shift, patient with multiple bowel movements but stool still remains dark brown. Dr. Samuel notified this AM at 0620 regarding findings of patient's stool, he stated he didn't expect him to be clear, but orders received for 1 additional fleet enema. Patient with IV fluids infusing. Patient NPO after midnight due to colonoscopy this AM. Patient currently resting in bed, no distress noted.
--- NOTE | 2019-12-02 08:00 | DI.RAD.S_ITS ---
PROCEDURE: XR ABDOMEN 1V INDICATIONS: colon obst TECHNIQUE: One view of the abdomen acquired. COMPARISON: [facility], CT, CT ABDOMEN PELVIS W CON, 12/01/2019, 13:52. [facility], CT, CT ABDOMEN PELVIS W CON, 11/28/2019, 18:55. FINDINGS: Surgical changes and devices: None. Bowel: Bowel gas pattern is normal. Soft tissues: There is gaseous prominence seen of the colon, with the cecum measuring greater than 11 cm. Gaseous prominence is also seen in the colon, measuring up to 3 cm. Bones: No suspicious bony lesions. Age-appropriate bony degenerative changes are seen. IMPRESSION: Gaseous prominence of the colon and small bowel. It is noted that distal colonic obstruction can be seen on the recent prior CT. Dictated by: Petr Guzman M.D. on 12/02/2019 at 8:05 Approved by: Petr Guzman M.D. on 12/02/2019 at 8:09
--- NOTE | 2019-12-02 08:44 | PC.NURSE ---
PT IN EXCRUCIATING ABD PAIN, FACE FLUSHED AND GRIMACING - LUNGS DIM BUT CLEAR- REQUIRING NO SUPPLEMENTAL O2 - MEDICATED WITH 1MG DILAUDID PRN- VOIDING AD YVETTE, DENIES NAUSEA- , [place], AT BEDSIDE AND UNDERSTANDING OF SURGICAL PLAN - THEY HAVE APPROPRIATE QUESTIONS AND THIS RN HAS ANSWERED TO THEIR SATISFACTION- PT REMSINS NPO STATUS- WITH 1/2NS INFUSING AT 100CC/H- CONSENT SIGNED
--- NOTE | 2019-12-02 09:09 | P.PN_ITS ---
Subjective Subjective Date Patient Seen: 12/02/19 Time Patient Seen: 09:09 Interval history: Patient has remained essentially unchanged overnight complaining of severe abdominal pain requiring frequent dosing with Dilaudid. I gave him 5 fleets enemas last night try to get some stool out of his distal colon. He has had some liquid stool through the night. He is still massively distended. Exam Vital Signs (past 8 hours): - 12/02/19 03:30 12/02/19 03:34 12/02/19 07:26 Temperature 98.4 F 98.7 F Pulse Rate 79 Respiratory Rate 21 Blood Pressure 128/92 H Pulse Oximetry 93 93 12/02/19 07:54 12/02/19 08:12 Temperature 97.8 F Pulse Rate 75 Respiratory Rate 14 Blood Pressure 156/93 H Pulse Oximetry 97 96 Oxygen Delivery Method Room Air Oxygen Flow Rate 0 Narrative Exam Narrative: Patient is alert and oriented complaining of marked abdominal pain Abdomen is very distended and tympanitic. Right lower quadrant particularly tender. Objective Labs Result Diagrams: 12/02/19 04:30 12/01/19 12:39 Labs: Laboratory Results - last 24 hr 12/01/19 12/01/19 12/01/19 12:39 12:39 12:39 WBC 13.4 H RBC 6.43 H Hgb 20.5 H Hct 58.6 H MCV 91.1 MCH 31.9 MCHC 35.0 RDW 13.4 Plt Count 348 Neut % (Auto) Not Reportable Lymph % (Auto) Not Reportable [place] % (Auto) Not Reportable Eos % (Auto) Not Reportable Baso % (Auto) Not Reportable Neut # (Auto) Lymph # (Auto) Not Reportable [place] # (Auto) Not Reportable Eos # (Auto) Baso # (Auto) Not Reportable Total Counted 100 Seg Neutrophils % 78.0 H Band Neutrophils % 2.0 L Lymphocytes % (Manual) 8.0 L Atypical Lymphs % 4.0 H Monocytes % (Manual) 6.0 Eosinophils % (Manual) 2.0 Neutrophils # (Manual) 56993 H RBC Morphology Normal morphology PT 11.6 INR 1.0 APTT 38 H Sodium 138 Potassium 4.5 Chloride 98 Carbon Dioxide 26 BUN 16 Creatinine 0.81 Estimated GFR > 60.0 BUN/Creatinine Ratio 19.8 Glucose 112 H Lactate Calcium 10.4 H Magnesium Total Bilirubin 0.9 AST 25 ALT 32 Alkaline Phosphatase 92 Total Protein 8.8 H Albumin 5.1 H Globulin 3.7 Albumin/Globulin Ratio 1.4 Lipase 72 Procalcitonin Ur Bilirubin Confirm Urine RBC Urine WBC Urine Bacteria Ur Culture Indicated? Nasal Screen MRSA (PCR) Stl C. cayetanensis PCR Stool Rotavirus (PCR) Stool Adenovirus (PCR) Stool Astrovirus (PCR) Stool Cryptosporidium PCR Stl E.coli Shiga Tox PCR St Sh/Enteroin Ecoli PCR Stool E coli O157 PCR Stl Enterotoxigenic E PCR Stool EPEC (PCR) Stl E. histolytica PCR Stool Giardia Lamblia PCR Stool Sapovirus (PCR) Stl P. shigelloides PCR St Y.enterocolitica PCR Stool Vibrio (PCR) Stl Vibrio cholerae PCR Stl Enteroaggr Ecoli PCR Stl Norovirus GI/GII PCR Campylobacter (PCR) C. difficile Tox (PCR) COVID-19 PCR Salmonella (PCR) 12/01/19 12/01/19 12/01/19 12:39 12:39 12:39 WBC RBC Hgb Hct MCV MCH MCHC RDW Plt Count Neut % (Auto) Lymph % (Auto) [place] % (Auto) Eos % (Auto) Baso % (Auto) Neut # (Auto) Lymph # (Auto) [place] # (Auto) Eos # (Auto) Baso # (Auto) Total Counted Seg Neutrophils % Band Neutrophils % Lymphocytes % (Manual) Atypical Lymphs % Monocytes % (Manual) Eosinophils % (Manual) Neutrophils # (Manual) RBC Morphology PT INR APTT Sodium Potassium Chloride Carbon Dioxide BUN Creatinine Estimated GFR BUN/Creatinine Ratio Glucose Lactate 1.6 Calcium Magnesium 2.5 H Total Bilirubin AST ALT Alkaline Phosphatase Total Protein Albumin Globulin Albumin/Globulin Ratio Lipase Cancelled Procalcitonin < 0.05 Ur Bilirubin Confirm Urine RBC Urine WBC Urine Bacteria Ur Culture Indicated? Nasal Screen MRSA (PCR) Stl C. cayetanensis PCR Stool Rotavirus (PCR) Stool Adenovirus (PCR) Stool Astrovirus (PCR) Stool Cryptosporidium PCR Stl E.coli Shiga Tox PCR St Sh/Enteroin Ecoli PCR Stool E coli O157 PCR Stl Enterotoxigenic E PCR Stool EPEC (PCR) Stl E. histolytica PCR Stool Giardia Lamblia PCR Stool Sapovirus (PCR) Stl P. shigelloides PCR St Y.enterocolitica PCR Stool Vibrio (PCR) Stl Vibrio cholerae PCR Stl Enteroaggr Ecoli PCR Stl Norovirus GI/GII PCR Campylobacter (PCR) C. difficile Tox (PCR) COVID-19 PCR Salmonella (PCR) 12/01/19 12/01/19 12/01/19 13:00 15:19 16:23 WBC RBC Hgb Hct MCV MCH MCHC RDW Plt Count Neut % (Auto) Lymph % (Auto) [place] % (Auto) Eos % (Auto) Baso % (Auto) Neut # (Auto) Lymph # (Auto) [place] # (Auto) Eos # (Auto) Baso # (Auto) Total Counted Seg Neutrophils % Band Neutrophils % Lymphocytes % (Manual) Atypical Lymphs % Monocytes % (Manual) Eosinophils % (Manual) Neutrophils # (Manual) RBC Morphology PT INR APTT Sodium Potassium Chloride Carbon Dioxide BUN Creatinine Estimated GFR BUN/Creatinine Ratio Glucose Lactate Calcium Magnesium Total Bilirubin AST ALT Alkaline Phosphatase Total Protein Albumin Globulin Albumin/Globulin Ratio Lipase Procalcitonin Ur Bilirubin Confirm Negative Urine RBC 0-1/hpf Urine WBC 0-1/hpf Urine Bacteria None seen Ur Culture Indicated? Cult not indicated Nasal Screen MRSA (PCR) Stl C. cayetanensis PCR Not detected Stool Rotavirus (PCR) Not detected Stool Adenovirus (PCR) Not detected Stool Astrovirus (PCR) Not detected Stool Cryptosporidium PCR Not detected Stl E.coli Shiga Tox PCR Not detected St Sh/Enteroin Ecoli PCR Not detected Stool E coli O157 PCR Not Reportable Stl Enterotoxigenic E PCR Not detected Stool EPEC (PCR) Not detected Stl E. histolytica PCR Not detected Stool Giardia Lamblia PCR Not detected Stool Sapovirus (PCR) Not detected Stl P. shigelloides PCR Not detected St Y.enterocolitica PCR Not detected Stool Vibrio (PCR) Not detected Stl Vibrio cholerae PCR Not detected Stl Enteroaggr Ecoli PCR Not detected Stl Norovirus GI/GII PCR Not detected Campylobacter (PCR) Not detected C. difficile Tox (PCR) Not detected COVID-19 PCR Negative Salmonella (PCR) Not detected 12/01/19 12/02/19 16:30 04:30 WBC 9.4 RBC 4.97 Hgb 15.9 Hct 46.2 MCV 92.9 MCH 31.9 MCHC 34.3 RDW 13.1 Plt Count 293 Neut % (Auto) 71.9 Lymph % (Auto) 16.3 L [place] % (Auto) 9.7 Eos % (Auto) 1.4 L Baso % (Auto) 0.7 Neut # (Auto) 6800 Lymph # (Auto) 1500 [place] # (Auto) 900 Eos # (Auto) 100 Baso # (Auto) 100 Total Counted Seg Neutrophils % Band Neutrophils % Lymphocytes % (Manual) Atypical Lymphs % Monocytes % (Manual) Eosinophils % (Manual) Neutrophils # (Manual) RBC Morphology PT INR APTT Sodium Potassium Chloride Carbon Dioxide BUN Creatinine Estimated GFR BUN/Creatinine Ratio Glucose Lactate Calcium Magnesium Total Bilirubin AST ALT Alkaline Phosphatase Total Protein Albumin Globulin Albumin/Globulin Ratio Lipase Procalcitonin Ur Bilirubin Confirm Urine RBC Urine WBC Urine Bacteria Ur Culture Indicated? Nasal Screen MRSA (PCR) Negative for mrsa Stl C. cayetanensis PCR Stool Rotavirus (PCR) Stool Adenovirus (PCR) Stool Astrovirus (PCR) Stool Cryptosporidium PCR Stl E.coli Shiga Tox PCR St Sh/Enteroin Ecoli PCR Stool E coli O157 PCR Stl Enterotoxigenic E PCR Stool EPEC (PCR) Stl E. histolytica PCR Stool Giardia Lamblia PCR Stool Sapovirus (PCR) Stl P. shigelloides PCR St Y.enterocolitica PCR Stool Vibrio (PCR) Stl Vibrio cholerae PCR Stl Enteroaggr Ecoli PCR Stl Norovirus GI/GII PCR Campylobacter (PCR) C. difficile Tox (PCR) COVID-19 PCR Salmonella (PCR) Assessment & Plan Assessment & Plan narrative: Patient suffering from colonic obstruction. Morning x-ray reveals marked cecal distention. Measurement is greater than 10 cm. Patient is quite tender and complaining of significant abdominal pain. This is despite having some liquid stools through the night. These were facilitated with fleets enemas. His CBC has normalized. Hemoglobin is now 15. 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 My plan is to examine that with the flexible sigmoidoscope this morning to try to confirm the diagnosis and extent of distal disease. I will resect this rectosigmoid try to decompress the cecum and likely create a hand-sewn anastomosis. The patient and his understand the increased risks of infection however they understand that he is obstructed. The agreed to the procedure with no unanswered questions.
[2019-12-02] MEDS: LACTATED RINGERS 1,000 ML 42 ML IV ×3 (12:32→17:04)
[2019-12-02] MEDS: ALBUTEROL 2.5 MG/3 ML NEB (ADULT) INH (12:47)
--- NOTE | 2019-12-02 12:47 | SUR.HOLD ---
Neb given per Dr. Sow.
--- NOTE | 2019-12-02 14:06 | SUR.OPER ---
Thapa placed in OR 16 Fr by Clifford RN
--- NOTE | 2019-12-02 14:07 | SUR.OPER ---
Pt. has FIORDALIZA drain 10 mm on abdomen, placed by Dr. Samuel
[2019-12-02] MEDS: SODIUM CHLORIDE IRRIG SOLUTION 1,000 ML, BACITRACIN 50,000 UNIT IRR (14:10)
--- NOTE | 2019-12-02 14:15 | CM.DANOTE ---
Patient is a 54 year old male who was admitted on 12/01/19 for Pain/Vomiting/Colitis. Pt has [employer] OUT [employer] for insurance and his PCP is Dr. Thiago Patel. EMR was reviewed. Per Surgeon, pt with ongoing pain management issues and quite distended still even after some loose stooling. Surgeon to complete a sigmoidoscope later today in the OR and possible tumor. Per RN, pt has been in excruciating pain this morning before surgery and pt to come back to the floor after surgery with a FIORDALIZA drain and ruby. SW has not met with pt bedside yet due to poorly controlled pain and scheduled scope today. Plan: SW to follow closely after surgical intervention today towards determining d/c planning needs. 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 No Advance Directives on File No History Provided By Patient,Medical Record Has Patient been admitted in last 30 No days? Prior Living Arrangements House Household Members spouse Type of transporation used prior to Drives own vehicle admit Independent with ADL's Yes Is patient alert and oriented? Yes Caregiver for Another No Patient/Family Preference Home with Home Health Comment Pending surgical intervention and needs post-op Barriers to Discharge No Discharge Plan Home Transportation Arrangement Spouse has been bedside and likely can transport home Additional Comment Pending surgery today Review Status In Process Please Provide Date Initial DC 12/02/19 Assessment Was Performed Next Review Type Continued Stay Review
--- NOTE | 2019-12-02 15:30 | SUR.OPER ---
ABDOMINAL DRESSING - TELFA, 4X4'S, ABD, TAPE
--- NOTE | 2019-12-02 16:03 | P.OP_ITS ---
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 Prior to surgery flexible sigmoidoscopy was done. Same procedure as scheduled: Yes Indications: Colonic obstruction Surgeon: Ko Samuel Click Yes if Unassisted: Yes Anesthesia Type: General Operative Notes Findings: Massive cecal distention with several serosal tears in the cecum. Large mass in the sigmoid colon indeterminate etiology. Obstructed colon. Closure Type: primary Specimen(s): other (Sigmoid colon with mass) Estimated Blood Loss (mL): 150 Blood products transfused: none Procedure in detail: The patient was properly identified during surgical pause he was given a general endotracheal anesthetic he was then placed in the left lateral decubitus position and underwent flexible sigmoidoscopy with the colonoscope. Patient had an obstructing tumor at 20 cm. He was then placed in the supine position. Prepped and draped in a sterile fashion exposure of the mid abdomen with a Thapa catheter in place. Midline incision was made from above the umbilicus down to the symphysis pubis this was carried down through the linea alba and the abdomen opened. Massive bowel distension was encountered. The cecum had several serosal tears but was not perforated. I placed a pursestring suture in the anterior cecal wall and through the pursestring placed a pool sucker and evacuated liquid stool and copious air from the ascending and transverse colon. The suction was removed and the pursestring tied and then this pursestring suture was buried in the seromuscular fashion using interrupted Vicryl sutures. There was no gross fecal contamination with that decompression maneuver. However I irrigated the right gutter with copious bacitracin saline after the cecum was decompressed. Then attention was directed to the sigmoid colon where he had a large very hard mass occupying the majority of the sigmoid colon. This mass was plastered to the left gutter. The inflammatory attachments were taken down sharply to attempt to mobilize the sigmoid. I was then able to divide the descending sigmoid junction with a GENIA stapler. This facilitated mobilizing the sigmoid mesentery which was taken down using the Thunder bolt cautery device. There was excellent hemostasis. The larger vessels and the sigmoid mesentery including the superior hemorrhoidal is a were suture ligated with heavy silk. There was excellent hemostasis. Distal exposure beyond the tumor mass was then carried out by mobilizing the rectum and I divided the rectosigmoid junction again with the GENIA stapler. The staple azul es were reinforced with silk. In order to affect a colo rectal anastomosis I was required to mobilize the splenic flexure completely. This was done by blunt and sharp dissection. Once this was carried out the descending colon easily reached the rectum without tension. A hand-sewn two-layer colorectal anastomosis was carried out with running 2 0 Monocryl: oleg suture technique. An outer layer circumferentially was placed of 3 0 silk interrupted seromuscular sutures anterior and posterior to the anastomosis. This was a tension-free anastomosis and was very healthy in appearance. Pelvis was irrigated with copious bacitracin saline. There was no bleeding. A 10 mm Liam drain was placed in the left side of the pelvis brought out through a stab wound in left lower quadrant. The drain was sutured to the skin with fine nylon. Viscera were replaced in the anatomic position after the mesenteric defect was closed with interrupted silks. Midline fascia closed with running 1. PDS. Subcu irrigated. Skin loosely stapled. Sterile dressing applied. Procedure was tolerated in a very stable fashion. Complications: none Post-operative Condition: stable Disposition: PACU
[2019-12-02] MEDS: HYDROMORPHONE 2 MG INJ IV ×8 (16:23→17:10)
--- NOTE | 2019-12-02 16:24 | SUR.PHASEI ---
Dr. Samuel notified 75mls emptied from drain. No new orders.
[2019-12-02] MEDS: BELLADONNA/OPIUM SUPPOSITORIES 1 EACH PR (17:05)
--- NOTE | 2019-12-02 17:11 | SUR.PHASEI ---
Dr. Samuel notified patient still moaning, c/o need to pee. [place] suppository order given per .
--- NOTE | 2019-12-02 17:26 | SUR.PHASEI ---
Dr. Sow and Lizzie notified HR 130s, patient moaning, 235 emptied from drain, drain dressing oozing. Abd firm. VVO 30mg Toradol now and stat H&H.
[2019-12-02] MEDS: KETOROLAC 30 MG/ML VIAL IV (17:32)
[2019-12-02] MEDS: fentaNYL 100 MCG/2 ML INJ IV ×2 (17:33→17:46)
[2019-12-02 17:38] LABS: Hematocrit 26.2 % (41-53); Hemoglobin 8.9 g/dL (13.5-17.5)
--- NOTE | 2019-12-02 17:53 | SUR.PHASEI ---
1742 Dr. Samuel notified HR 140s, discussed new H&H. Patient still moaning. VTO admit to ICU, give vistaril 50mg IM, type and cross 2u, have nurse call MD at 2100 with update.
--- NOTE | 2019-12-02 17:54 | SUR.PHASEI ---
Drain site oozing again. Dressing reinforced.
[2019-12-02] MEDS: hydrOXYzine 50 MG/ML INJ IM (18:05)
[2019-12-02] MEDS: HALOPERIDOL 5 MG/ML VIAL IV (18:24)
--- NOTE | 2019-12-02 18:52 | PM.PNPO.1 ---
Subjective Subjective Date Patient Seen: 12/02/19 Time Patient Seen: 18:52 Interval history: Patient has been out of the operating room for several hours following a colon resection for obstructing tumor. He still in the PACU. He has had episodes of confusion and tachycardia. Heart rate is been up to 150. Blood pressure has remained normal. At the moment patient is returning more toward baseline with a heart rate of 122 and he seems more oriented I have given him Vistaril and Haldol. Exam Vital Signs (past 8 hours): - 12/02/19 11:30 12/02/19 16:02 12/02/19 16:07 Temperature 98.1 F Pulse Rate 82 89 85 Respiratory Rate 22 16 16 Blood Pressure 139/87 129/87 124/80 Pulse Oximetry 92 88 L 90 L 12/02/19 16:12 12/02/19 16:16 12/02/19 16:26 Temperature Pulse Rate 91 H 94 H 94 H Respiratory Rate 14 19 16 Blood Pressure 125/49 L 130/91 H 126/84 Pulse Oximetry 92 91 90 L 12/02/19 16:41 12/02/19 16:56 12/02/19 17:11 Temperature 97.2 F L Pulse Rate 99 H 114 H 107 H Respiratory Rate 19 12 16 Blood Pressure 110/78 110/82 107/75 Pulse Oximetry 89 L 90 L 91 12/02/19 17:21 12/02/19 17:37 12/02/19 17:53 Temperature 99.6 F Pulse Rate 131 H 123 H Respiratory Rate 21 Blood Pressure 134/92 H 118/84 Pulse Oximetry 90 L 85 L 12/02/19 18:12 Temperature 98.4 F Pulse Rate Respiratory Rate Blood Pressure Pulse Oximetry Oxygen Delivery Method Nasal Cannula Oxygen Flow Rate 6 Narrative Exam Narrative: Patient communicates sometimes seems a bit inappropriate. Of course he has just had general anesthesia and narcotics in the PACU. Abdomen is distended but less than preoperatively. Liam drain is producing serosanguineous bloody drainage. Objective Labs Result Diagrams: 12/02/19 17:31 12/01/19 12:39 Labs: Laboratory Results - last 24 hr 12/01/19 12/02/19 12/02/19 16:30 04:30 17:31 WBC 9.4 RBC 4.97 Hgb 15.9 8.9 L Hct 46.2 26.2 L MCV 92.9 MCH 31.9 MCHC 34.3 RDW 13.1 Plt Count 293 Neut % (Auto) 71.9 Lymph % (Auto) 16.3 L [place] % (Auto) 9.7 Eos % (Auto) 1.4 L Baso % (Auto) 0.7 Neut # (Auto) 6800 Lymph # (Auto) 1500 [place] # (Auto) 900 Eos # (Auto) 100 Baso # (Auto) 100 Nasal Screen MRSA (PCR) Negative for mrsa Assessment & Plan Post-op Postoperative Procedures: Procedures Operation Date: 12/02/19 09:30 Actual Procedures Side Surgeon p Colon resection Ko Samuel MD p Colonoscopy Flexible Sigmoidoscopy Ko Samuel MD Postoperative status narrative: Patient has had an episode of confusion which may be related to ethanol in his history. Patient admits to on occasion drinking 7 or 8 beers with his friends. Otherwise he does drink daily. My assessment of his mental status and tachycardia his that he could be developing early DTs and I gave him a dose of Haldol and will continue with as needed Ativan. He is being transferred to intensive care for careful monitoring. Hemoglobin in the recovery room 8.9. I did cross match him for 2 units of packed cells but will hold giving any blood this evening. Treatment with the Haldol and Vistaril brought his heart rate down to 120 from 150. His blood pressure has remained normal throughout the postoperative course thus far. He is being transferred to ICU for further monitoring. Postoperative plan: see orders Time Spent With Patient Time with patient: 25 - 35 minutes
[2019-12-02] MEDS: LACTATED RINGERS 1,000 ML 125 ML IV (19:45)
--- NOTE | 2019-12-02 20:12 | SUR.PHASEI ---
1816 Patient's became anxious, tense, teary, HR increased to 150s. Began apologizing and calling staff sir and reported being in the [employer]. Dr. Sow and Lizzie notified. Dr. Samuel came to bedside and evaluated patient. Patient suddenly became aware and asked Dr. Samuel how many tumors he found. HR began to decrease. New orders placed. Haldol given per MD. Dr Samuel examined patient and stated patient may discharge to ICU. 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
--- NOTE | 2019-12-02 20:36 | PC.NURSE ---
1840 Pt arrived to room 227 from PACU via bed, pt currently on 10L via simple mask with sat of 96%, pt rouses to voice and able to state name and that he is not feeling any pain at this time. Midline dressing to abdomen CDI, dressing to drain has been reinforced by PACU and has so serosanginous drainage. Bed low and locked, call light within reach will continue to monitor.
[2019-12-02 21:12] LABS: Hematocrit 39.4 % (41-53); Hemoglobin 13.6 g/dL (13.5-17.5)
[2019-12-02] MEDS: LORazepam 2 MG/ML INJ 1 MG IV (21:50)
[2019-12-02] MEDS: SODIUM CHLORIDE 0.9% 500 ML IV (23:36)
[2019-12-03] VITALS (30 sets, daily range): BP systolic 98–152; BP diastolic 59–103; PULSE 107–137; RESP 15–30; TEMP 36.4–38.1; O2SAT 86–97
--- NOTE | 2019-12-03 00:19 | PC.NURSE ---
Addendum entered by Jazmin Salcido R.N. 12/03/19 05:58: Patient with 1 unit of packed cells successfully infused throughout the shift with no reaction noted. Patient remains tachycardic with rate in 120-130's, BP in 120's for SBP. Patient requiring 10L simple mask with 02 sat 93%. Patient medicated multiple times throughout the shift with PRN Dilaudid. Ativan administered x1. Zofran administered this morning due to increased nausea/burning sensation. Patient has not slept the entire shift and has remained restless and diaphoretic. Urine output poor, patience drain with moderate amount of sanguineous drainage out - see I&Os. Patient turned and repositioned every 2 hours, and as needed for comfort. Patient remains AOx3, but occasionally forgetful. Addendum entered by Jazmin Salcido R.N. 12/03/19 04:59: At 0400 assessment, patient's lung sounds are coarse. Patient with persistent moist coughing, no sputum production. O2 sats dropping to 86-88%, patient mouth breathing. 4.5 L 02 administered via simple mask. RT notified, they increased patient to 10L simple mask. Addendum entered by Jazmin Salcido R.N. 12/03/19 02:49: Notified Dr. Samuel at 0245 of patient's low urine output (100 mL over 4 hour period thus far), tachycardia, and diaphoresis. Patient also with new onset of persistant cough. Lungs remain clear, diminished in the bases. He stated he would like to continue to monitor the patient. Order received for 1 time dose of Ativan, 1mg. Original Note: Upon getting report from evening RNAngelica, patient pale, tachycardic - heart rate sustaining 140 bpm, hypotensive with BP 98/69. Patient with saturated abdominal dressing, more so on left side near patience drain. Called Dr. Samuel at 2330 regarding patient's status and findings as listed above. Order received to change abdominal dressing and 500 mL 0.9% NS bolus. 2337 Dr. Samuel called this RN back instructing to administer 1 unit of packed cells due to fluctuation in hemoglobin at 1731 vs 2100 lab draw and patient's clinical presentation. Orders received.
[2019-12-03] MEDS: HYDROMORPHONE 1 MG INJ IV ×8 (01:49→21:19)
[2019-12-03] MEDS: LORazepam 2 MG/ML INJ 1 MG IV ×3 (02:56→18:13)
[2019-12-03] MEDS: CEFTRIAXONE 1 GM/50 ML FROZ.PIGGY IV (03:58)
[2019-12-03] MEDS: LACTATED RINGERS 1,000 ML 125 ML IV (03:59)
[2019-12-03 04:34] LABS: Add Manual Diff / Slide Review NO; Basophils Absolute Auto 0 /uL (0-100); Basophils Percent Auto 0.2 % (0-2); Eosinophils Absolute Auto 100 /uL (0-450); Eosinophils Percent Auto 0.4 % (2-4); Hemoglobin 12.6 g/dL (13.5-17.5); Lymphocytes Absolute Auto 400 /uL (1100-4500); Lymphocytes Percent Auto 1.9 % (25-40); Mean Corpuscular HGB Conc 34.6 % (30-36); Mean Corpuscular Hemoglobin 31.6 PG (26-34); Mean Corpuscular Volume 91.3 fL (80-100); Monocytes Absolute Auto 1300 /uL (0-900); Monocytes Percent Auto 6.8 % (3-14); Neutrophils Absolute Auto 17800 /uL (1500-7000); Neutrophils Percent Auto 90.7 % (50-75); Platelet Count 296 X10^3/uL (150-400); Red Blood Cell Count 3.99 X10^6/uL (4.5-5.9); Red Cell Distribution Width 13.6 % (11.6-14.8); White Blood Cell Count 19.6 X10^3/uL (4.5-11.0)
[2019-12-03 04:35] LABS: Hematocrit 36.4 % (41-53)
[2019-12-03 04:38] LABS: BUN Creatinine Ratio 26.3 (6-22); Blood Urea Nitrogen 20 mg/dL (9-20); Calcium 8.1 mg/dL (8.4-10.2); Carbon Dioxide 25 mmol/L (22-32); Chloride 101 mmol/L (98-107); Estimated Glomerular Filt Rate > 60.0 mL/min (>60); Glucose 155 mg/dL (70-100); HEMOLYSIS < 15 (0-50); Potassium 4.1 mmol/L (3.4-5.1); Sodium 133 mmol/L (137-145)
[2019-12-03] MEDS: ONDANSETRON 4 MG/2 ML INJ IV (04:56)
[2019-12-03] MEDS: PANTOPRAZOLE 20 MG TABLET PO (05:13)
[2019-12-03] MEDS: ALBUTEROL 2.5 MG/3 ML NEB (ADULT) INH ×3 (08:09→19:05)
--- NOTE | 2019-12-03 08:44 | P.PN_ITS ---
Subjective Subjective Date Patient Seen: 12/03/19 Time Patient Seen: 08:45 Interval history: Patient is less than 24 hours post left colon resection with a hand-sewn colo rectal anastomosis. The patient states that he feels much better than preoperatively he has incisional pain but no deep abdominal pain that he experienced before surgery due to his complete colonic obstruction. Patient seems alert and oriented. Exam Vital Signs (past 8 hours): - 12/03/19 00:49 12/03/19 01:00 12/03/19 01:05 Temperature 98.6 F 98.2 F Pulse Rate 116 H 121 H 124 H Respiratory Rate 18 15 17 Blood Pressure 105/59 L 114/72 114/72 Pulse Oximetry 93 12/03/19 01:18 12/03/19 02:00 12/03/19 02:55 Temperature 98.6 F 98.2 F Pulse Rate 120 H 125 H 127 H Respiratory Rate 22 21 25 H Blood Pressure 111/66 115/75 115/75 Pulse Oximetry 92 12/03/19 03:00 12/03/19 03:26 12/03/19 03:28 Temperature Pulse Rate 128 H Respiratory Rate 15 Blood Pressure 119/88 Pulse Oximetry 94 86 L 97 12/03/19 04:00 12/03/19 04:47 12/03/19 05:00 Temperature 97.8 F Pulse Rate 126 H 120 H 125 H Respiratory Rate 17 18 19 Blood Pressure 124/87 127/95 H Pulse Oximetry 93 94 95 12/03/19 06:00 12/03/19 07:00 12/03/19 08:10 Temperature Pulse Rate 129 H 107 H 129 H Respiratory Rate 19 30 H 20 Blood Pressure 122/93 H 129/92 H Pulse Oximetry 94 93 92 Oxygen Delivery Method High Flow Nasal Cannula Oxygen Flow Rate 10 Narrative Exam Narrative: Patient is appropriate with conversation. Lungs distant breath sounds with some rhonchi Heart regular rhythm tachycardic Abdomen less distended than before surgery. Dressing is dry and intact. Liam drain is producing a moderate amount of serosanguineous fluid which is not bilious and not purulence Objective Labs Result Diagrams: 12/03/19 04:20 12/03/19 04:20 Labs: Laboratory Results - last 24 hr 12/02/19 12/02/19 12/02/19 17:31 18:31 21:00 WBC RBC Hgb 8.9 L 13.6 Hct 26.2 L 39.4 L MCV MCH MCHC RDW Plt Count Neut % (Auto) Lymph % (Auto) [place] % (Auto) Eos % (Auto) Baso % (Auto) Neut # (Auto) Lymph # (Auto) [place] # (Auto) Eos # (Auto) Baso # (Auto) Sodium Potassium Chloride Carbon Dioxide BUN Creatinine Estimated GFR BUN/Creatinine Ratio Glucose Calcium Blood Type A Positive Antibody Screen Negative Crossmatch See Detail 12/03/19 12/03/19 04:20 04:20 WBC 19.6 H D RBC 3.99 L Hgb 12.6 L Hct 36.4 L MCV 91.3 MCH 31.6 MCHC 34.6 RDW 13.6 Plt Count 296 Neut % (Auto) 90.7 H Lymph % (Auto) 1.9 L [place] % (Auto) 6.8 Eos % (Auto) 0.4 L Baso % (Auto) 0.2 Neut # (Auto) 24826 H Lymph # (Auto) 400 L [place] # (Auto) 1300 H Eos # (Auto) 100 Baso # (Auto) 0 Sodium 133 L Potassium 4.1 Chloride 101 Carbon Dioxide 25 BUN 20 Creatinine 0.76 Estimated GFR > 60.0 BUN/Creatinine Ratio 26.3 H Glucose 155 H Calcium 8.1 L Blood Type Antibody Screen Crossmatch Assessment & Plan Assessment & Plan narrative: Since coming to the recovery room the patient has had a persistent tachycardia and episodes of confusion. I think this is likely related to alcohol withdrawal syndrome. Through the night the patient had several hemoglobin determinations. The 1st postop was 8.9 and then a few hours later it was 13-,1/2 without being transfused. Subsequent to that the patient's blood pressure fell and his dressing was saturated in his Liam drain was producing a copious amount of bloody fluid. With blood pressure in the 90s I elected to transfuse 1 unit of packed cells to ensure hemodynamic stability. This resulted in synagogue of normal blood pressure and some reduction in his tachycardia. This morning his hemoglobin is 12.6 BUN and creatinine are normal electrolytes normal. Patient has been oliguric despite receiving a total of 5 L of perioperative fluid intravenously. My plan is to reduce his IV fluid intake allow a liquid diet and give 1 dose of Lasix. Patient will get out of bed and ambulate today with an abdominal binder and sit in a chair. We will continue all other supportive care. DVT prophylaxis is with SCDs. I have stopped Lovenox because of the bloody nature of his abdominal drainage. Patient appears stable this morning.
[2019-12-03] MEDS: NICOTINE 21 MG PATCH TOP (09:29)
[2019-12-03] MEDS: FUROSEMIDE 20 MG/2 ML VIAL IV (09:30)
--- NOTE | 2019-12-03 10:14 | CM.DPC ---
DCP Cont: Per Surgeon, pt tolerated surgery well although surgery was long as it ended up being a colon resection due to obstructing tumor. Per RN, pt now on CIWA protocol for precaution as pt is typically an every day drinker and currently is somewhat restless, confused, low urine output and required blood transfusion. Per RT, pt requiring highflow nasal cannula for 10L oxygen and pt does not have home oxygen at baseline. Plan: SW to follow closely later in the day or when pt more medically appropriate for bedside discussion regarding d/c planning needs as pt likely not stable for discharge for at least a few days pending progress. Chanel Bird MSW
[2019-12-03] MEDS: OXYCODONE/ACETAMINOPHEN 5/325 TABLET 1 TAB PO ×2 (12:26→18:14)
[2019-12-03] MEDS: CALCIUM CARBONATE 500 MG TAB 1000 MG PO ×3 (12:26→21:19)
--- NOTE | 2019-12-03 13:23 | PC.NURSE ---
Addendum entered by Bridget Hoff R.N. 12/03/19 13:48: HR TACHYCARDIC 126-132 BPM/H ENTIRE SHIFT Original Note: DAYSHIFT NOTE: POD #1 BOWEL RESECTION- LARGE MIDLINE INCISION WITH DRESSING DRY AND INTACT. DRESSING TO LEFT QUADRANT WAS REINFORCED ON NOC SHIFT AND HAS BEEN INTACT SINCE. HYPERACTIVE BT'S + FLATUS WELL SMALL AMOUNT MUCOID SMEAR OF STOOL BROWN WITH DARK RED PER BEDPAN. ALSO, ATTEMPTED BSC WITH ASSIST WITH NO RESULTS. 20MG IV LASIX X 1 GIVEN THIS AM WITH FAIR-MODERATE EFFECTS- ASIF PATENT. LUNGS DIM AND COARSE WITH EXP WHEEZE AUSCULTATED PRIOR TO IV LASIX GIVEN- NO FURTHER WHEEZES HEARD. OXYGEN DEMANDS CONTINUE TO BE HIGH- PT PRESENTLY AT 10-12 LITERS HFNC FOR SPO2 90-94% AND NOTED TO HAVE INTERMITTENT SLEEP APNEA. LR DECREASED TO 75CC/H PER MD ORDER AND TOLERATING SMALL AMOUNT OF FULL LIQUIDS WITHOUT NAUSEA- INITIATED PO PERCOCET WITH FOOD ON BELLY AT LUNCHTIME - PRIOR TO THAT 2 DOSES OF 1MG IV DILAUDID GIVEN THIS AM WELL 1 MG IV LORAZEPAM GIVEN FOR GENERALIZED ANXIETY/DELIRIUM ( PT HASN'T HAD SLEEP FOR MORE THAN 20-30 MINUTES AT A TIME X 48+ HOURS. CIWA SCORE ONLY 2. HELPFUL AT BEDSIDE
[2019-12-03] MEDS: LACTATED RINGERS 1,000 ML 75 ML IV (15:02)
[2019-12-03] MEDS: CEFTRIAXONE 2 GM/50 ML FROZ.PIGGY IV (16:47)
--- NOTE | 2019-12-03 17:13 | PM.PN.1 ---
Subjective Subjective Date Patient Seen: 12/03/19 Time Patient Seen: 17:13 Interval history: Patient is a low more than 24 hours postop left colon resection for obstructing tumor with a hand-sewn colorectal anastomosis. Patient has been passing flatus today. He has been up in a chair today. He is attempting to take in some liquids orally. He has no nausea or vomiting. He has moderate abdominal pain. Exam Vital Signs (past 8 hours): - 12/03/19 09:30 12/03/19 10:00 12/03/19 11:43 Temperature 98.8 F Pulse Rate 134 H 126 H 131 H Respiratory Rate 24 20 22 Blood Pressure 144/103 H 137/88 Pulse Oximetry 91 91 93 12/03/19 13:00 12/03/19 14:58 12/03/19 15:00 Temperature Pulse Rate 137 H 137 H Respiratory Rate 19 20 Blood Pressure 152/79 H Pulse Oximetry 91 92 12/03/19 15:42 12/03/19 15:54 Temperature 98.6 F Pulse Rate 134 H Respiratory Rate 23 Blood Pressure 122/72 Pulse Oximetry Oxygen Delivery Method Nasal Cannula Oxygen Flow Rate 2 Narrative Exam Narrative: Patient seems oriented at this time. He is conversing. Vital signs are stable but he is still experiencing tachycardia. Abdomen is distended but the same as this morning. Liam drain is producing serosanguineous fluid. Objective Labs Result Diagrams: 12/03/19 04:20 12/03/19 04:20 Labs: Laboratory Results - last 24 hr 12/02/19 12/02/19 12/02/19 17:31 18:31 21:00 WBC RBC Hgb 8.9 L 13.6 Hct 26.2 L 39.4 L MCV MCH MCHC RDW Plt Count Neut % (Auto) Lymph % (Auto) [place] % (Auto) Eos % (Auto) Baso % (Auto) Neut # (Auto) Lymph # (Auto) [place] # (Auto) Eos # (Auto) Baso # (Auto) Sodium Potassium Chloride Carbon Dioxide BUN Creatinine Estimated GFR BUN/Creatinine Ratio Glucose Calcium Blood Type A Positive Antibody Screen Negative Crossmatch See Detail 12/03/19 12/03/19 04:20 04:20 WBC 19.6 H D RBC 3.99 L Hgb 12.6 L Hct 36.4 L MCV 91.3 MCH 31.6 MCHC 34.6 RDW 13.6 Plt Count 296 Neut % (Auto) 90.7 H Lymph % (Auto) 1.9 L [place] % (Auto) 6.8 Eos % (Auto) 0.4 L Baso % (Auto) 0.2 Neut # (Auto) 44081 H Lymph # (Auto) 400 L [place] # (Auto) 1300 H Eos # (Auto) 100 Baso # (Auto) 0 Sodium 133 L Potassium 4.1 Chloride 101 Carbon Dioxide 25 BUN 20 Creatinine 0.76 Estimated GFR > 60.0 BUN/Creatinine Ratio 26.3 H Glucose 155 H Calcium 8.1 L Blood Type Antibody Screen Crossmatch Assessment & Plan Assessment & Plan narrative: Patient remains fairly stable is passing flatus with return of some bowel function. He did not diurese as much as I would have thought with 1 dose of Lasix this morning there is recorded only about 300 cc of urine. He still has tachycardia. I am actually going to give him a fluid bolus now. Recheck his labs in the morning.
[2019-12-03] MEDS: SODIUM CHLORIDE 0.9% 500 ML 1000 ML IV (17:31)
[2019-12-03 18:26] LABS: BUN Creatinine Ratio 26.4 (6-22); Blood Urea Nitrogen 19 mg/dL (9-20); Calcium 7.8 mg/dL (8.4-10.2); Carbon Dioxide 28 mmol/L (22-32); Chloride 99 mmol/L (98-107); Estimated Glomerular Filt Rate > 60.0 mL/min (>60); Glucose 123 mg/dL (70-100); HEMOLYSIS < 15 (0-50); Potassium 3.5 mmol/L (3.4-5.1); Sodium 133 mmol/L (137-145)
[2019-12-03] MEDS: ACETAMINOPHEN 325 MG TABLET 650 MG PO (19:56)
[2019-12-04] VITALS (16 sets, daily range): BP systolic 104–136; BP diastolic 61–85; PULSE 103–133; RESP 14–20; TEMP 36.5–37.4; O2SAT 90–100
[2019-12-04] MEDS: OXYCODONE/ACETAMINOPHEN 5/325 TABLET 1 TAB PO ×3 (00:04→08:43)
[2019-12-04] MEDS: CALCIUM CARBONATE 500 MG TAB 1000 MG PO ×6 (00:05→20:31)
[2019-12-04] MEDS: HYDROMORPHONE 1 MG INJ IV ×7 (00:46→22:15)
[2019-12-04] MEDS: LACTATED RINGERS 1,000 ML 75 ML IV ×2 (02:44→20:30)
[2019-12-04] MEDS: PANTOPRAZOLE 20 MG TABLET PO (05:53)
--- NOTE | 2019-12-04 06:53 | PC.NURSE ---
Pt alert and oriented x 4. Pain controlled by percocet Q4 and IV dilaudid for breakthrough pain. Midline incision only showing scant amount of drainage. Pt 1pa to stand at bedside. Sinus tach throughout the night, Zane WILSON aware. Pt tried to have BM without success, passing flatus.
[2019-12-04 08:21] LABS: Add Manual Diff / Slide Review NO; Basophils Absolute Auto 0 /uL (0-100); Basophils Percent Auto 0.3 % (0-2); Eosinophils Absolute Auto 200 /uL (0-450); Eosinophils Percent Auto 1.4 % (2-4); Hematocrit 27.9 % (41-53); Hemoglobin 9.8 g/dL (13.5-17.5); Lymphocytes Absolute Auto 900 /uL (1100-4500); Lymphocytes Percent Auto 5.4 % (25-40); Mean Corpuscular HGB Conc 35.3 % (30-36); Mean Corpuscular Hemoglobin 32.2 PG (26-34); Mean Corpuscular Volume 91.3 fL (80-100); Monocytes Absolute Auto 1100 /uL (0-900); Monocytes Percent Auto 6.8 % (3-14); Neutrophils Absolute Auto 13700 /uL (1500-7000); Neutrophils Percent Auto 86.1 % (50-75); Platelet Count 285 X10^3/uL (150-400); Red Blood Cell Count 3.05 X10^6/uL (4.5-5.9); Red Cell Distribution Width 13.2 % (11.6-14.8); White Blood Cell Count 15.9 X10^3/uL (4.5-11.0)
[2019-12-04 08:33] LABS: BUN Creatinine Ratio 19.1 (6-22); Blood Urea Nitrogen 13 mg/dL (9-20); Calcium 8.3 mg/dL (8.4-10.2); Carbon Dioxide 32 mmol/L (22-32); Chloride 98 mmol/L (98-107); Estimated Glomerular Filt Rate > 60.0 mL/min (>60); Glucose 96 mg/dL (70-100); HEMOLYSIS < 15 (0-50); Magnesium 1.9 mg/dL (1.6-2.3); Phosphorous 2.4 mg/dL (2.5-4.5); Potassium 3.9 mmol/L (3.4-5.1); Sodium 133 mmol/L (137-145)
[2019-12-04] MEDS: NICOTINE 21 MG PATCH TOP (08:43)
[2019-12-04] MEDS: ALBUTEROL 2.5 MG/3 ML NEB (ADULT) INH (08:57)
--- NOTE | 2019-12-04 10:04 | PC.NURSE ---
Addendum entered by Bridget Hoff R.N. 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 MEDICATED WITH ONE PERCOCET FOR PAIN AT THIS TIME- ABLE TO WEAN O2 FROM 11L HFNC TO 5L WITH SPO2 93% - ALAN DRAIN WITH 160CC/BLOODY DRAINAGE OUTPUT THUS FAR THIS SHIFT- WILL CONTINUE TO MONITOR CLOSELY .
[2019-12-04] MEDS: ALBUTEROL/IPRATROPIUM 3 ML AMPUL INH ×3 (10:41→19:00)
[2019-12-04] MEDS: OXYCODONE/ACETAMINOPHEN 5/325 TABLET 2 TAB PO (11:35)
--- NOTE | 2019-12-04 13:00 | PT.IIE ---
Current Diagnoses Partial intestinal obstruction, unspecified as to cause (12/01/19) Surgery Performed Operation Date: 12/02/19 09:30 Actual Procedures p Colon resection - Ko Samuel MD p Colonoscopy Flexible Sigmoidoscopy - Ko Samuel MD Surgical History (Last Reviewed 12/01/19 @ 16:53 by Ko Samuel MD) H/O inguinal hernia repair (Acute) History of carpal tunnel surgery of left wrist (Acute) Hx of tonsillectomy (Acute) S/P cervical spinal fusion (Acute) [place] teeth removed (Acute) Medical History (Last Reviewed 12/01/19 @ 16:53 by Ko Samuel MD) Arthritis (Acute) Colonoscopy planned (Acute) Diverticulosis (Acute) Gout (Acute) Nocturia (Acute) Numbness and tingling in both hands (Acute) Unilateral primary osteoarthritis of first carpometacarpal joint, unspecified hand (Acute) Physical Therapy Inpatient Evaluation/Re-Eval M1 PT/OT-IP Prior Functional Status Start: 12/04/19 09:18 Freq: NEEDED Status: Active Protocol: Document 12/04/19 12:37 AW (Rec: 12/04/19 13:00 AW [id number]) Medical Review Prior Functional Status Medical History Reviewed Yes Communication WNL. No known deficits. Mobility and Gait Pt is independent with all mobility at baseline. Activities of Daily Living and IADL's IND Social History Household Members spouse Living Arrangements House Number of Floors (Floors) One Floor Number of Stairs To Enter/Railing? 2 NATALI with banister on the right side for support ascending. Home Environment High Toilet,Tub/Shower Employment Status Unemployed Additional Social History Comment Pt lives with his , Roberta. 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 He has had left carpal tunnel release and cervical fusion. He is anticipating one more right wrist surgery. M2 PT-IP Current Condition Start: 12/04/19 09:18 Freq: NEEDED Status: Active Protocol: Document 12/04/19 12:37 AW (Rec: 12/04/19 13:00 AW [id number]) Physical Therapy Current Condition Current Condition Evaluation Date 12/04/19 Treatment Diagnosis s/p colon resection; difficulty in walking Onset Date 12/01/19 Precautions Abdominal Surgery Precautions Log Roll,Lifting Restrictions, Gait Belt above Incisional Area M3 PT-IP Subjective Start: 12/04/19 09:18 Freq: NEEDED Status: Active Protocol: Document 12/04/19 12:37 AW (Rec: 12/04/19 13:00 AW [id number]) Subjective Physical Therapy Visit Type Type Initial Evaluation Visit Start Time 11:49 Visit Stop Time 12:30 Total Visit Minutes 41 Notes Pt's present for history gathering. Pt recently medicated for pain. Physical Therapy Visit Comments Patient Comments Pt is tired but willing to participate with PT. Patient Goals Pt hopes to return home with assist at discharge. Therapy Pain Assessment Pain When Pain Assessed During Mobility Pain Present Pain Present Pain Reported Location abd Intensity 3 Scale Used Numeric (0 - 10) Pain Management Techniques Re-positioning,Timing of Activity with Medications M4 PT-IP Mobility and Gait Start: 12/04/19 09:18 Freq: NEEDED Status: Active Protocol: Document 12/04/19 12:37 AW (Rec: 12/04/19 13:00 AW [id number]) PT-Bed Mobility Assessment Rolling Type of Rolling Log Rolling,Roll to Right Level of Assist Minimal Assistance,1 Person Assistance Supine to Sit Supine to Sit Minimal Assistance,1 Person Assistance,Bedrails Sit to Supine Sit to Supine Minimal Assistance,1 Person Assistance Scooting Scooting to Edge of Bed Contact Guard Assistance PT-Transfer Assessment Sit to and From Stand Sit to and from Stand Minimal Assistance,1 Person Assistance,Use of Upper Extremities Equipment Transfer Assistive Device Gait Belt,Front Wheeled Walker Orthotic/Prosthetic Devices or Brace: No Transfers Transfer Destination Bed,Chair Transfer Technique pt ambulated with FWW Transfer Ability Level of Assist Contact Guard Assistance Comments Mobility Comments Pt agreed to mobilize with PT. Supine BP was 119/77, SpO2 95 % on 3L. CAR WHACKER assisted with line management (O2 via NC, FIORDALIZA drain, ruby catheter, IV, dishwasher busser). He log rolled to his right side and completed SL to sit min A x 1 with verbal cues for sequencing. Pt sat EOB with minimal complaint and completed sit to stand min A x 1 with FWW. He ambulated with FWW and 2PA (1 for line management) to the chair where he completed stand > sit CGA and sit > stand min A x 1. He requested to use the toilet while he was up. He ambulated and transferred to the toilet [facility]. He attempted to move his bowels without success. He completed his own pericare in sitting and then stood from the toilet min A x 1 with use of grab bar on the right side. Pt then ambulated around the room min A x 1 and CAR WHACKER assisting with line management ~30 feet total. Pt moved slowly and methodically, tending to brain picker the FWW with each stride in spite of encouragement to push the walker in order to conserve energy. Pt returned to the right side of the bed and completed reverse log roll min A x 1 to elevate his legs to the bed. Pt was able to bridge his hips to move his lower body to the left for optimal positioning. Pt was positioned with pillows under BLE and BUE, HOB elevated to 35 degrees. Call light and all needs were placed within reach . Gait Assessment Gait Gait Assistance Required: Minimum Assistance,1 Person Assist Distance (Feet) 30 Assistive Devices Assistive Device Gait Belt,Front Wheeled Walker Gait Deviations General Gait Pattern Antalgic,Decreased Stride Length,Decreased Feet Clearance,Flexed Trunk Factors Limiting Gait Function Factors Limiting Gait Function Decreased Activity Tolerance, Decreased Strength,Poor Balance Comments Gait Comments See mobility comments for details. Stair Climbing Assessment Comments Stair Climbing Comments Not assessed. No stairs at home. PT-Balance Assessment Sitting Balance and Reactions Static Sitting Balance Ability Good Dynamic Sitting Balance Ability Good Standing Balance and Reactions Static Standing Balance Ability Fair Dynamic Standing Balance Ability Fair Device Used FWW M5 PT-IP Objective Assessments Start: 12/04/19 09:18 Freq: NEEDED Status: Active Protocol: Document 12/04/19 12:37 AW (Rec: 12/04/19 13:00 AW [id number]) Orientation Orientation/Cognition Level of Alertness Alert Orientation Name,Day of Week,Place, Situation Language Function Ability No Deficits Noted Safety Awareness Decreased Safety Awareness Memory Description No Deficits Noted Gross Range of Motion Upper Extremity ROM Assessment Within Functional Limits Lower Extremity ROM Assessment Within Functional Limits Strength Upper Extremity Strength Assessment Within Functional Limits Lower Extremity Strength Assessment Bilaterally Impaired Hip 4-/5 Knee 4+/5 Ankle 4+/5 Comments Strength Comments Hip strength limited by abdominal pain. Coordination Assessment Gross Coordination Gross Coordination WNL Sensation Assessment Sensation Gross Sensation WNL Muscle Tone Muscle Tone WNL Yes M6 PT-IP Treatment Start: 12/04/19 09:18 Freq: NEEDED Status: Active Protocol: Document 12/04/19 12:37 AW (Rec: 12/04/19 13:00 AW [id number]) Physical Therapy Treatment Exercises Exercises Ankle Pumps Education Education Provided Precautions,Safety Other Treatments Other Treatment Performed Provided education on role of PT, plan of care, abdominal surgery precautions, safe use of FWW, and energy conservation considerations. M7 PT-IP Assessment and Plan Start: 12/04/19 09:18 Freq: NEEDED Status: Active Protocol: Document 12/04/19 12:37 AW (Rec: 12/04/19 13:00 AW [id number]) PT Summary Assessment and Plan Potential Rehabilitation Potential Good Status of Condition at Evaluation Evolving Summary Impairments Pain,ROM,Strength,Balance,Bed Mobility,Transfers,Gait, Activity Tolerance Assessment Summary Danielito is a 54 yo man seen for PT evaluation on POD2 following colon resection for obstructing tumor. Pt is independent in all regards at baseline. On evaluation, he is in good spirits and shows good effort with all activities. He requires min assist for bed mobility, and min assist for transfers and ambulation with FWW. CAR WHACKER assisted with line management during mobility. PT anticipates this pt will be safe to discharge to home environment once medically stable but would certainly benefit from home health PT to continue to progress his mobility safely back toward baseline. Goals Bed Mobility Goal Independent Transfer Goal Independent,Front Wheeled Walker Gait Goal Independent,Front Wheel Walker Gait Distance 200 Other Goals - progress ambulation to 100 feet IND without AD Days to Meet Goals 10 Frequency of Treatment Frequency Of Treatment Once a Day Treatment Plan Physical Therapy Treatment Plan Bed Mobility Training,Transfer Training,Gait Training, Therapeutic Exercise,Balance Retraining,Post Op Education, Discharge Planning,Hot or Cold Pack,Neuromuscular Re-ed Other Recommendations and Next Treatment progress gait distance as Focus tolerated, review precautions, ther ex for proximal BLE strength Recommendations To Nursing Amount of Assist Needed 1 Person Assist,2 Person Assist Discharge Recommendations PT Discharge Recommendations Home with Assistance,Home Health Equipment Needed for Home Before FWW and possible tub transfer Discharge bench Transportation Needs at Discharge Private Vehicle
--- NOTE | 2019-12-04 13:48 | CM.DPC ---
DCP HH Planning: Per MD, pt making good medical progress but still requiring oxygen, slowly advancing diet from liquids to pt ate some oatmeal for breakfast this morning. Cultures from tumor still pending to determine malignant or benign. Per RN, pt has been up some today again in the room and now down to 2L oxygen. Per PT, recommending home with spouse assist and HH. OT ordered and pending. SW met bedside with pt and spouse and explained role and they confirm they live at home in [place] and pt is far below baseline. Pt glad that he has been able to tolerate a little advancing of diet and he still is quite easily fatigued. SW discussed HH recommendation and thoroughly discussed HH services and frequency and the benefit to home assessment and caregiver training and pt and spouse agreeable with SW making HH referral based on Vendor Calendar to confirm if there will be any out of pocket expense. Spouse very supportive and willing to get any recommended DME but has questions of what pt will need and SW spoke to OT who plans to eval pt this afternoon and requested DME/Loaner list be provided to spouse and further discussion on DME recommendations and OT kindly will discuss with pt and spouse today. TRINH called [facility] with new referral and they will check pt's BCBS OUT STATE REG to see if any out of pocket/copays. SW faxed clinicals to review. Plan: SW to follow for pt progress towards plan of home with spouse support and new HH. SW to check with [facility] on any copays and F2F still needed. CORWIN Titus
--- NOTE | 2019-12-04 13:53 | OT.IPNOTE ---
Pt able to speak to OT with his to talk about equipment needs, however too tired to get up at this time. Pt was able to get up with PT earlier. Therefore check on pt tomorrow for OT eval.
[2019-12-04] MEDS: CEFTRIAXONE 2 GM/50 ML FROZ.PIGGY IV (16:17)
[2019-12-04] MEDS: ONDANSETRON 4 MG/2 ML INJ IV (16:26)
--- NOTE | 2019-12-04 16:30 | P.PN_ITS ---
Subjective Subjective Date Patient Seen: 12/04/19 Time Patient Seen: 16:30 Interval history: No major overnight events. Passing flatus, OOB ambulated. Exam Vital Signs (past 8 hours): - 12/04/19 08:31 12/04/19 08:58 12/04/19 09:54 Temperature Pulse Rate 133 H 133 H 122 H Respiratory Rate 20 14 17 Blood Pressure 119/77 Pulse Oximetry 93 92 93 12/04/19 10:41 12/04/19 11:13 12/04/19 12:39 Temperature 99.3 F Pulse Rate 115 H 122 H Respiratory Rate 16 19 Blood Pressure 129/78 Pulse Oximetry 94 92 93 12/04/19 15:50 Temperature 97.8 F Pulse Rate 108 H Respiratory Rate 19 Blood Pressure 121/77 Pulse Oximetry 93 Oxygen Delivery Method High Flow Nasal Cannula Oxygen Flow Rate 3 Narrative Exam Narrative: Gen-Adult male no acute distress Abdomen-Mildly distended. Incision CDI, FIORDALIZA bloody, Appropriately tender Objective Labs Result Diagrams: 12/04/19 08:14 12/04/19 08:14 Labs: Laboratory Results - last 24 hr 12/03/19 12/04/19 12/04/19 18:06 08:14 08:14 WBC 15.9 H RBC 3.05 L Hgb 9.8 L Hct 27.9 L MCV 91.3 MCH 32.2 MCHC 35.3 RDW 13.2 Plt Count 285 Neut % (Auto) 86.1 H Lymph % (Auto) 5.4 L [place] % (Auto) 6.8 Eos % (Auto) 1.4 L Baso % (Auto) 0.3 Neut # (Auto) 59982 H Lymph # (Auto) 900 L [place] # (Auto) 1100 H Eos # (Auto) 200 Baso # (Auto) 0 Sodium 133 L 133 L Potassium 3.5 3.9 Chloride 99 98 Carbon Dioxide 28 32 BUN 19 13 Creatinine 0.72 0.68 Estimated GFR > 60.0 > 60.0 BUN/Creatinine Ratio 26.4 H 19.1 Glucose 123 H 96 Calcium 7.8 L 8.3 L Phosphorus 2.4 L Magnesium 1.9 Assessment & Plan Post-op Postoperative Procedures: Procedures Operation Date: 12/02/19 09:30 Actual Procedures Side Surgeon p Colon resection Ko Samuel MD p Colonoscopy Flexible Sigmoidoscopy Ko Samuel MD Postoperative plan narrative: 54 M POD 2 sp sigmoidecomy for colonic obstruction making a reasonable recovery. Plan -Continue full liquid diet, passing flatus but remains distended -Acute blood loss anemia. Monintor hemodynamics and CBC. Hold chemical prophy laxis ok for SCDs -OOB, PT consult -Increase PO pain meds -Continue resp supportive care wean O2 and nebs
[2019-12-04] MEDS: POTASSIUM PHOSPHATE 15 MMOL in DEXTROSE 5% IN WATER 250 ML 63.75 ML IV (16:57)
--- NOTE | 2019-12-04 23:02 | PC.NURSE ---
shift note: Pt ambulated in hallway 6 laps total. Tolerated ambulation well. Abdominal binder placed and pt states it helps when he coughs. O2 cont at 3L per NC sats 92%. IV LR cont to L hand IV @ 75ml/hr. Abd incision intact, patience drain draining sangenous drainage 75cc total this shift.
[2019-12-05] VITALS (31 sets, daily range): BP systolic 114–141; BP diastolic 72–88; PULSE 101–119; RESP 16–20; TEMP 36.2–38; O2SAT 90–98
[2019-12-05] MEDS: CALCIUM CARBONATE 500 MG TAB 1000 MG PO ×5 (00:30→22:15)
[2019-12-05] MEDS: HYDROMORPHONE 1 MG INJ IV (02:49)
[2019-12-05 04:33] LABS: Add Manual Diff / Slide Review NO; Basophils Absolute Auto 0 /uL (0-100); Basophils Percent Auto 0.3 % (0-2); Eosinophils Absolute Auto 300 /uL (0-450); Eosinophils Percent Auto 2.6 % (2-4); Hematocrit 26.6 % (41-53); Hemoglobin 9.1 g/dL (13.5-17.5); Lymphocytes Absolute Auto 1000 /uL (1100-4500); Lymphocytes Percent Auto 8.3 % (25-40); Mean Corpuscular HGB Conc 34.2 % (30-36); Mean Corpuscular Hemoglobin 31.3 PG (26-34); Mean Corpuscular Volume 91.6 fL (80-100); Monocytes Absolute Auto 800 /uL (0-900); Monocytes Percent Auto 6.8 % (3-14); Neutrophils Absolute Auto 10200 /uL (1500-7000); Platelet Count 336 X10^3/uL (150-400); Red Blood Cell Count 2.91 X10^6/uL (4.5-5.9); Red Cell Distribution Width 13.1 % (11.6-14.8); White Blood Cell Count 12.5 X10^3/uL (4.5-11.0)
[2019-12-05 04:40] LABS: BUN Creatinine Ratio 12.3 (6-22); Blood Urea Nitrogen 8 mg/dL (9-20); Calcium 8.3 mg/dL (8.4-10.2); Carbon Dioxide 35 mmol/L (22-32); Chloride 96 mmol/L (98-107); Estimated Glomerular Filt Rate > 60.0 mL/min (>60); Glucose 99 mg/dL (70-100); HEMOLYSIS < 15 (0-50); Phosphorous 3.8 mg/dL (2.5-4.5); Potassium 4.2 mmol/L (3.4-5.1); Sodium 131 mmol/L (137-145)
[2019-12-05] MEDS: OXYCODONE/ACETAMINOPHEN 5/325 TABLET 2 TAB PO ×4 (05:08→22:15)
[2019-12-05] MEDS: PANTOPRAZOLE 20 MG TABLET PO (05:09)
--- NOTE | 2019-12-05 06:23 | PC.NURSE ---
Pt alert and oriented x4. Pt OOB and walking around unit without issues. 1pa with FWW. Midline incision CHANI, CDI. Abdominal binder on throughout the night. Pain controlled per patient. O2 says at 94% on3L o2. No complaints at this time.
[2019-12-05] MEDS: ALBUTEROL/IPRATROPIUM 3 ML AMPUL INH (08:04)
[2019-12-05] MEDS: NICOTINE 21 MG PATCH TOP (08:47)
--- NOTE | 2019-12-05 10:09 | OT.IPNOTE ---
Attempted to see pt for OT eval, pt requested not to have OT services at this time. Per pt feels the main barrier is that he is still bloated, otherwise states feels that he will have no issues for ADl needs. Pt however agreed to suggestion of possibly getting a tub bench and FWW prior to discharge. Pt has a supportive to assist pt at home. Therefore to discharge OT eval orders.
[2019-12-05] MEDS: LACTATED RINGERS 1,000 ML 75 ML IV (11:32)
--- NOTE | 2019-12-05 11:42 | CM.DPC ---
DCP: continued: Case received, EMR reviewed and met with pt and his Roberta: [phone]. Introduced self and role and with followup on their discussions with Osvaldo Buchanan the last few days. Pt is now up and doing laps around unit using FWW and only assist is for the lines he has in place. Discussed HH option as it appears that pt is recovering to point where he likely will not need this. NANCY Wood confirms that, while pt is currently on 02, he is expected to be off this by d/c. Wound care: she confirms incision is CDI with no dressing changes. Pt is still quite bloated and says he is trying not to ambulate as much as possible as he knows this will help him to recover his GI function. Have spoken with [facility] as Chanel had requested that they look at any copay that may be needed IF HH needed. He said this was still unknown but that if pt has met his deductible and his plans out of pocket expenses he likely would not have a copay. He agrees to keep the referral in case of need but at this time that is increasingly unlikely. P: home when stable for same (with [facility] referral in care of need) DCP team will be following.
--- NOTE | 2019-12-05 13:28 | DIET.PN ---
Dietary Progress Note RD visited c pt as care team reports abdominal bloating and associated low POs. Pt reports only drinking lactose free milk as he is sensitive to lactose (bloating, gas). Pt assigned full liquid diet. Updated kitchen on lactose-free fulls. Sent pt smoothie (lactose-free yogurt, banana, ice) and ONS Michi for lunch. Pt has had many visitors today so is just slowly sipping these drinks. Will f/u for tolerance.
--- NOTE | 2019-12-05 13:48 | PM.PNPO.1 ---
Subjective Subjective Date Patient Seen: 12/05/19 Time Patient Seen: 13:48 Interval history: No acute overnight events. Feels more distended than yesterday no bowel movement or flatus over the past 48 hours. Has been out of bed and ambulating . Heart rate has come down from 130 use to low 100s over the past 24 hours Exam Vital Signs (past 8 hours): - 12/05/19 08:00 12/05/19 08:06 12/05/19 09:00 Temperature 99.3 F Pulse Rate 101 H 106 H Respiratory Rate 18 18 Blood Pressure 123/83 Pulse Oximetry 93 98 92 12/05/19 12:38 Temperature 99.0 F Pulse Rate 107 H Respiratory Rate 16 Blood Pressure 119/77 Pulse Oximetry 92 Oxygen Delivery Method High Flow Nasal Cannula Oxygen Flow Rate 3 Narrative Exam Narrative: General adult male alert oriented no acute distress Cardiac sinus tachycardia Abdomen moderately distended appropriately tender to palpation midline incision clean dry intact with navi FIORDALIZA drain left lower quadrant sanguinous Extremities warm well perfused Objective Labs Result Diagrams: 12/05/19 04:20 12/05/19 04:20 Labs: Laboratory Results - last 24 hr 12/05/19 12/05/19 04:20 04:20 WBC 12.5 H RBC 2.91 L Hgb 9.1 L Hct 26.6 L MCV 91.6 MCH 31.3 MCHC 34.2 RDW 13.1 Plt Count 336 Neut % (Auto) 82.0 H Lymph % (Auto) 8.3 L [place] % (Auto) 6.8 Eos % (Auto) 2.6 Baso % (Auto) 0.3 Neut # (Auto) 52231 H Lymph # (Auto) 1000 L [place] # (Auto) 800 Eos # (Auto) 300 Baso # (Auto) 0 Sodium 131 L Potassium 4.2 Chloride 96 L Carbon Dioxide 35 H BUN 8 L Creatinine 0.65 L Estimated GFR > 60.0 BUN/Creatinine Ratio 12.3 Glucose 99 Calcium 8.3 L Phosphorus 3.8 D Magnesium 2.0 Assessment & Plan Post-op Postoperative Procedures: Procedures Operation Date: 12/02/19 09:30 Actual Procedures Side Surgeon p Colon resection Ko Samuel MD p Colonoscopy Flexible Sigmoidoscopy Ko Samuel MD Postoperative plan narrative: 54-year-old man postoperative day 3 after an open sigmoid resection for a large bowel obstruction. He is gradually recovering. He had some early postoperative confusion was unclear if secondary to alcohol withdrawal however he is no longer scoring CIWA and I suspect this was more likely due to metabolic encephaolpathy. His hypoxia without respiratory failure has also improved from requiring face mask to 3 L of supplemental O2 today, I suspect he has some degree of underlying respiratory disfunction given his long history of tobacco use. Plan -full liquid diet until return bowel function -IV fluids until take in adequate p.o. intake -DC Thapa catheter -out of bed and ambulate -SCDs and prophylactic Lovenox
--- NOTE | 2019-12-05 14:39 | PT-IP ANOTE ---
Spoke with pt and pt stated he had no PT needs as nursing is walking with pt. Pt however will need to meet goals, informed RN of goal needs during second attempt to see pt. Upon second attempt to speak with pt he was unavailable, RN stated pt was in shower at this time. Will check back with pt later today or tomorrow.
[2019-12-05] MEDS: CEFTRIAXONE 2 GM/50 ML FROZ.PIGGY IV (16:09)
[2019-12-05] MEDS: ACETAMINOPHEN 325 MG TABLET 650 MG PO (16:09)
--- NOTE | 2019-12-05 23:09 | PC.NURSE ---
end of shift note: IV cont in progress @ 75cc/hr to LFA IV. Voided x1 200cc. Marcos drain with BRB drainage 30cc. Abd incision intact. Ambulated in hallway x6laps this evening. TMax 100.7 for this shift, tylenol tabs 2 given x1. Pain relieved with percocet.
[2019-12-06] VITALS (41 sets, daily range): BP systolic 118–134; BP diastolic 80–87; PULSE 88–115; RESP 16–22; TEMP 36.6–37.8; O2SAT 83–97
[2019-12-06] MEDS: CALCIUM CARBONATE 500 MG TAB 1000 MG PO ×5 (00:30→20:22)
[2019-12-06 04:52] LABS: Add Manual Diff / Slide Review NO; Basophils Absolute Auto 100 /uL (0-100); Basophils Percent Auto 0.6 % (0-2); Eosinophils Absolute Auto 300 /uL (0-450); Eosinophils Percent Auto 3.2 % (2-4); Hematocrit 25.4 % (41-53); Hemoglobin 8.8 g/dL (13.5-17.5); Lymphocytes Absolute Auto 900 /uL (1100-4500); Lymphocytes Percent Auto 9.8 % (25-40); Mean Corpuscular HGB Conc 34.7 % (30-36); Mean Corpuscular Hemoglobin 31.9 PG (26-34); Mean Corpuscular Volume 91.9 fL (80-100); Monocytes Absolute Auto 700 /uL (0-900); Monocytes Percent Auto 8.4 % (3-14); Neutrophils Absolute Auto 6900 /uL (1500-7000); Platelet Count 375 X10^3/uL (150-400); Red Blood Cell Count 2.77 X10^6/uL (4.5-5.9); White Blood Cell Count 8.9 X10^3/uL (4.5-11.0)
[2019-12-06 05:05] LABS: Blood Urea Nitrogen 12 mg/dL (9-20); Calcium 8.6 mg/dL (8.4-10.2); Carbon Dioxide 35 mmol/L (22-32); Chloride 95 mmol/L (98-107); Estimated Glomerular Filt Rate > 60.0 mL/min (>60); Glucose 98 mg/dL (70-100); HEMOLYSIS < 15 (0-50); Magnesium 1.9 mg/dL (1.6-2.3); Phosphorous 4.3 mg/dL (2.5-4.5); Potassium 4.3 mmol/L (3.4-5.1); Sodium 131 mmol/L (137-145)
[2019-12-06] MEDS: LACTATED RINGERS 1,000 ML 75 ML IV (05:22)
[2019-12-06] MEDS: PANTOPRAZOLE 20 MG TABLET PO (05:22)
[2019-12-06] MEDS: OXYCODONE/ACETAMINOPHEN 5/325 TABLET 2 TAB PO ×4 (05:29→20:22)
--- NOTE | 2019-12-06 06:31 | PC.NURSE ---
Addendum entered by Jazmin Salcido R.N. 12/06/19 06:47: 30 mL of sanguineous blood from Marcos drain for shift. Patient remains afebrile after Tylenol administered on evening shift. Original Note: warehouse shift supervisor note: Patient made multiple laps around ICU corridor with RN at beginning of shift. Patient able to ambulate on RA with assistance of walker and gait belt. Abdominal dressing changed per this RN, and abdominal binder placed back on patient after dressing change. [place] clean, dry, intact. Dry dressing applied. Patient requesting to sleep tonight and not be bothered because he hadn't slept well in a couple days. VSS throughout the shift. Patient requesting 1 PRN dose of pain medication this AM. Patient voided in urinal x1 for 300 mL of dark yellow urine. Patient tolerating PO intake well. IV fluids maintained throughout shift. Patient currently sleeping, no distress noted. Patient remains on 2L NC while resting.
--- NOTE | 2019-12-06 08:55 | P.PN_ITS ---
Subjective Subjective Date Patient Seen: 12/06/19 Time Patient Seen: 08:55 Interval history: Feeling much better than yesterday. His appetite has returned he is now passing flatus. Thapa catheter was removed urinating normally. Exam Vital Signs (past 8 hours): - 12/06/19 04:27 Temperature 97.9 F Pulse Rate 92 H Respiratory Rate 19 Blood Pressure 125/83 Pulse Oximetry 95 Oxygen Delivery Method Nasal Cannula Oxygen Flow Rate 2 Narrative Exam Narrative: General adult male alert oriented no acute distress Abdomen mildly distended less than yesterday softer. Drain sanguinous but less output in 24 hours ago Objective Labs Result Diagrams: 12/06/19 04:30 12/06/19 04:30 Labs: Laboratory Results - last 24 hr 12/06/19 12/06/19 04:30 04:30 WBC 8.9 RBC 2.77 L Hgb 8.8 L Hct 25.4 L MCV 91.9 MCH 31.9 MCHC 34.7 RDW 13.0 Plt Count 375 Neut % (Auto) 78.0 H Lymph % (Auto) 9.8 L [place] % (Auto) 8.4 Eos % (Auto) 3.2 Baso % (Auto) 0.6 Neut # (Auto) 6900 Lymph # (Auto) 900 L [place] # (Auto) 700 Eos # (Auto) 300 Baso # (Auto) 100 Sodium 131 L Potassium 4.3 Chloride 95 L Carbon Dioxide 35 H BUN 12 Creatinine 0.75 Estimated GFR > 60.0 BUN/Creatinine Ratio 16.0 Glucose 98 Calcium 8.6 Phosphorus 4.3 Magnesium 1.9 Assessment & Plan Post-op Postoperative Procedures: Procedures Operation Date: 12/02/19 09:30 Actual Procedures Side Surgeon p Colon resection Ko Samuel MD p Colonoscopy Flexible Sigmoidoscopy Ko Samuel MD Postoperative status narrative: 54-year-old man postoperative day 4 after a sigmoid colectomy for large bowel obstruction doing well. His postoperative ileus has resolved. Plan -regular diet -DC IV fluids -20 mg of IV Lasix -okay for Lovenox now an SCDs -Approaching discharge
[2019-12-06] MEDS: ENOXAPARIN 40 MG/0.4 ML SYRINGE SUBCUT (09:33)
[2019-12-06] MEDS: FUROSEMIDE 20 MG/2 ML VIAL IV (09:33)
[2019-12-06] MEDS: NICOTINE 21 MG PATCH TOP (09:33)
[2019-12-06] MEDS: ALBUTEROL/IPRATROPIUM 3 ML AMPUL INH (12:18)
--- NOTE | 2019-12-06 12:55 | PT.IPTN ---
Current Diagnoses Partial intestinal obstruction, unspecified as to cause (12/01/19) Surgery Performed Operation Date: 12/02/19 09:30 Actual Procedures p Colon resection - Ko Samuel MD p Colonoscopy Flexible Sigmoidoscopy - Ko Samuel MD Physical Therapy Treatment Note M2 PT-IP Current Condition Start: 12/04/19 09:18 Freq: NEEDED Status: Active Protocol: Document 12/04/19 12:37 AW (Rec: 12/04/19 13:00 AW [id number]) Physical Therapy Current Condition Current Condition Evaluation Date 12/04/19 Treatment Diagnosis s/p colon resection; difficulty in walking Onset Date 12/01/19 Precautions Abdominal Surgery Precautions Log Roll,Lifting Restrictions, Gait Belt above Incisional Area M3 PT-IP Subjective Start: 12/04/19 09:18 Freq: NEEDED Status: Active Protocol: Document 12/06/19 12:41 HH (Rec: 12/06/19 12:55 HH [id number]) Subjective Physical Therapy Visit Type Type Treatment Note Visit Start Time 10:10 Visit Stop Time 10:31 Total Visit Minutes 21 Notes attended session. 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 Patient Goals Pt hopes to return home with assist at discharge. Therapy Pain Assessment Pain When Pain Assessed During Mobility Pain Present Pain Present Pain Reported M4 PT-IP Mobility and Gait Start: 12/04/19 09:18 Freq: NEEDED Status: Active Protocol: Document 12/06/19 12:41 HH (Rec: 12/06/19 12:55 [id number]) PT-Transfer Assessment Sit to and From Stand Sit to and from Stand Standby Assistance,Use of Upper Extremities Equipment Transfer Assistive Device None,Gait Belt,Front Wheeled Walker Orthotic/Prosthetic Devices or Brace: No Transfers Transfer Destination Bed,Chair,Toilet Transfer Technique pt ambulated with FWW Transfer Ability Level of Assist Standby Assistance Comments Mobility Comments Pt was in chair upon PT arrival who just finished his breakfast. just came in to attend session. pt agreed to mobilize with PT. No line management today. He requested to use bathroom first before mobility. He stood up without UE support and amb there with SBA. Pt used urinal without support in standing. After that, he amb with this PT with SBA to hallway. He completed the entire AC unit with steady gait and completed steps climbing. Pt walked back to his room and back to chair safely. Denied discomfort. Call light placed within reach Gait Assessment Gait Gait Assistance Required: Standby Assistance Distance (Feet) 580 Able to Maintain Weight Bearing Status Yes During Gait Assistive Devices Assistive Device None,Gait Belt,Front Wheeled Walker Gait Deviations General Gait Pattern Antalgic,Decreased Stride Length,Decreased Feet Clearance,Flexed Trunk Factors Limiting Gait Function Factors Limiting Gait Function Decreased Activity Tolerance, Decreased Strength,Poor Balance Comments Gait Comments See mobility comments for details. Stair Climbing Assessment Evaluation Level of Assist On Stairs Standby Assistance Devices Stair Climbing Assistive Devices Front Wheel Walker Technique/Endurance Stair Climbing Direction Ascend and Descend Stair Climbing Technique Step to Step Number of Steps Climbed 1 Stair Climbing Set # Repetitions (reps) 2 Comments Stair Climbing Comments pt completed 2 PF steps with FWW safely. No verbal cues needed. PT-Balance Assessment Sitting Balance and Reactions Static Sitting Balance Ability Normal Dynamic Sitting Balance Ability Normal Standing Balance and Reactions Static Standing Balance Ability Normal Dynamic Standing Balance Ability Good Device Used none M5 PT-IP Objective Assessments Start: 12/04/19 09:18 Freq: NEEDED Status: Active Protocol: Document 12/04/19 12:37 AW (Rec: 12/04/19 13:00 AW [id number]) Orientation Orientation/Cognition Level of Alertness Alert Orientation Name,Day of Week,Place, Situation Language Function Ability No Deficits Noted Safety Awareness Decreased Safety Awareness Memory Description No Deficits Noted Gross Range of Motion Upper Extremity ROM Assessment Within Functional Limits Lower Extremity ROM Assessment Within Functional Limits Strength Upper Extremity Strength Assessment Within Functional Limits Lower Extremity Strength Assessment Bilaterally Impaired Hip 4-/5 Knee 4+/5 Ankle 4+/5 Comments Strength Comments Hip strength limited by abdominal pain. Coordination Assessment Gross Coordination Gross Coordination WNL Sensation Assessment Sensation Gross Sensation WNL Muscle Tone Muscle Tone WNL Yes M6 PT-IP Treatment Start: 12/04/19 09:18 Freq: NEEDED Status: Active Protocol: Document 12/04/19 12:37 AW (Rec: 12/04/19 13:00 AW [id number]) Physical Therapy Treatment Exercises Exercises Ankle Pumps Education Education Provided Precautions,Safety Other Treatments Other Treatment Performed Provided education on role of PT, plan of care, abdominal surgery precautions, safe use of FWW, and energy conservation considerations. M7 PT-IP Assessment and Plan Start: 12/04/19 09:18 Freq: NEEDED Status: Active Protocol: Document 12/06/19 12:41 HH (Rec: 12/06/19 12:55 HH [id number]) PT Summary Assessment and Plan Potential Rehabilitation Potential Excellent Status of Condition at Evaluation Stable Summary Impairments Pain,ROM,Strength,Balance,Bed Mobility,Transfers,Gait, Activity Tolerance Progress Towards Goals Safe For Discharge Assessment Summary Bill improves with amb distance and assistance needed for overall mobility. He also completed PF step climbing with SBA. Recommended pt to use FWW for long distance walk at this point d/t his limited activity tolerance. Pt stated that he will acquire one upon DC. Pt is safe to d/c from therapy at this point and cont mobility with nursing staff. Frequency of Treatment Frequency Of Treatment Discharge Recommendations To Nursing Amount of Assist Needed Standby Assistance Discharge Recommendations PT Discharge Recommendations Home with Assistance,Home Health Equipment Needed for Home Before FWW and possible tub transfer Discharge bench Transportation Needs at Discharge Private Vehicle
[2019-12-06] MEDS: CEFTRIAXONE 2 GM/50 ML FROZ.PIGGY IV (16:41)
[2019-12-06] MEDS: ACETAMINOPHEN 325 MG TABLET 650 MG PO (20:21)
[2019-12-06] MEDS: LORazepam 2 MG/ML INJ 1 MG IV (20:25)
--- NOTE | 2019-12-06 21:15 | PC.NURSE ---
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 Voided x3 and had 1 large BM. Marcos drain with serious drainage 30cc. Abd incision intact with abd dressing under abdominal binder. T-Max 100.7 for this shift, tylenol 650mg administered x1. Pain relieved with percocet and lorazepam administered for sleep. Bed low and locked, call light within reach, will continue to monitor.
[2019-12-07] MEDS: CALCIUM CARBONATE 500 MG TAB 1000 MG PO ×3 (00:04→09:58)
[2019-12-07 00:13] VITALS: BP 136/90; PULSE 99; RESP 16; TEMP 37.2; O2SAT 92
[2019-12-07] MEDS: OXYCODONE/ACETAMINOPHEN 5/325 TABLET 2 TAB PO ×3 (02:30→13:54)
[2019-12-07 04:46] VITALS: BP 128/82; PULSE 91; RESP 16; TEMP 37.5; O2SAT 94
[2019-12-07 05:06] LABS: Add Manual Diff / Slide Review NO; Basophils Absolute Auto 0 /uL (0-100); Basophils Percent Auto 0.3 % (0-2); Eosinophils Absolute Auto 300 /uL (0-450); Hematocrit 25.9 % (41-53); Hemoglobin 9.1 g/dL (13.5-17.5); Lymphocytes Absolute Auto 800 /uL (1100-4500); Mean Corpuscular HGB Conc 35.3 % (30-36); Mean Corpuscular Hemoglobin 32.2 PG (26-34); Mean Corpuscular Volume 91.2 fL (80-100); Monocytes Absolute Auto 1200 /uL (0-900); Monocytes Percent Auto 9.9 % (3-14); Neutrophils Absolute Auto 9300 /uL (1500-7000); Neutrophils Percent Auto 79.8 % (50-75); Platelet Count 456 X10^3/uL (150-400); Red Blood Cell Count 2.84 X10^6/uL (4.5-5.9); Red Cell Distribution Width 12.8 % (11.6-14.8); White Blood Cell Count 11.7 X10^3/uL (4.5-11.0)
[2019-12-07] MEDS: PANTOPRAZOLE 20 MG TABLET PO (05:06)
[2019-12-07 05:12] LABS: Blood Urea Nitrogen 12 mg/dL (9-20); Calcium 8.6 mg/dL (8.4-10.2); Carbon Dioxide 34 mmol/L (22-32); Chloride 97 mmol/L (98-107); Estimated Glomerular Filt Rate > 60.0 mL/min (>60); Glucose 99 mg/dL (70-100); HEMOLYSIS < 15 (0-50); Magnesium 1.9 mg/dL (1.6-2.3); Phosphorous 4.2 mg/dL (2.5-4.5); Potassium 4.1 mmol/L (3.4-5.1); Sodium 131 mmol/L (137-145)
--- NOTE | 2019-12-07 05:36 | PC.NURSE ---
cage shift manager note: Patient slept majority of the shift. Void in urinal x1 for 450 mL of yellow urine. Patient with T-max of 99.5 for shift. Lungs remain coarse. Patient able to cough with small production of damon/clear sputum. Patient on RA. Abdominal dressing changed at 0500, navi remain clean, dry, intact. Marcos drain with 30 mL of sanguineous drainage out. Patient medicated this AM with PRN pain medication for 5/10 pain. Currently, patient resting in bed. No distress noted.
[2019-12-07 08:00] VITALS: BP 123/82; PULSE 98; RESP 20; TEMP 36.4; O2SAT 96; O2SAT 98
[2019-12-07] MEDS: ENOXAPARIN 40 MG/0.4 ML SYRINGE SUBCUT (09:57)
[2019-12-07] MEDS: NICOTINE 21 MG PATCH TOP (09:58)
[2019-12-07] MEDS: ALBUTEROL/IPRATROPIUM 3 ML AMPUL INH (10:15)
[2019-12-07 10:16] VITALS: PULSE 114; RESP 18; O2SAT 98
[2019-12-07 12:00] VITALS: BP 133/86; PULSE 116; RESP 18; TEMP 37; O2SAT 94
--- NOTE | 2019-12-07 14:57 | CM.DPC ---
DCP Cont: Patient is discharging home today. Confirmed that he will not need home health. Called Rony at [facility] and updated him that patient is going home with no needs of home health. He is aware. P: Patient discharging home today with no needs. Radha Berg RN/Compounding Assistant
--- NOTE | 2019-12-07 15:46 | P.DS_ITS ---
History of Present Illness History of Present Illness Chief complaint: colitis,vomiting,pain Discharge Providers Provider Date of admission: 12/01/19 16:30 Discharge Date: 12/07/19 Primary care physician: Thiago Patel MD Consults: 12/02/19 13:48 Consult to Respiratory Therapy Evaluate & Treat Comment: 30-45 pack-years, risk for SHERIDAN, post-op colectomy Physician Instructions: Evaluate and treat 12/04/19 09:06 Consult to Occupational Therapy Evaluate & Treat Comment: Physician Instructions: Evaluate and treat Consult to Physical Therapy Evaluate & Treat Comment: Physician Instructions: Evaluate and Treat Discharge provider: Michael Thomas MD Summary Hospital Course Discharge Diagnosis: Large bowel obstruction Acute blood loss anemia Hospital Course: Had an open sigmoid colectomy for a large bowel obstruction. Postoperative ileus resolved spontaneously. He had acute blood loss anemia, post operatively recieved 1 unit of red cells and remained hemodynamically stable Hct stabilized at 26. At discharge tolerating regular diet having flatus and BM ambulatory urinating normally, and pain is controlled with oral medication. Drain has been removed. Pathology is pending. Status at Discharge Cognitive/behavioral status at discharge: oriented Functional status at discharge: independent ambulation Overall status at discharge: patient is back to baseline Exam Vital Signs (past 8 hours): - 12/07/19 08:00 12/07/19 10:16 12/07/19 12:00 Temperature 97.6 F 98.6 F Pulse Rate 98 H 114 H 116 H Respiratory Rate 20 18 18 Blood Pressure 123/82 133/86 Pulse Oximetry 98 98 94 Oxygen Delivery Method Room Air Oxygen Flow Rate 0 Narrative Exam Narrative: General adult male alert oriented no acute distress Chest nonlabored respirations Abdomen midline incision clean dry intact with navi appropriately tender to palpation Extremities warm well perfused Objective Labs Result Diagrams: 12/07/19 04:35 12/07/19 04:35 Labs: Laboratory Results - last 24 hr 12/07/19 12/07/19 04:35 04:35 WBC 11.7 H RBC 2.84 L Hgb 9.1 L Hct 25.9 L MCV 91.2 MCH 32.2 MCHC 35.3 RDW 12.8 Plt Count 456 H Neut % (Auto) 79.8 H Lymph % (Auto) 7.0 L [place] % (Auto) 9.9 Eos % (Auto) 3.0 Baso % (Auto) 0.3 Neut # (Auto) 9300 H Lymph # (Auto) 800 L [place] # (Auto) 1200 H Eos # (Auto) 300 Baso # (Auto) 0 Sodium 131 L Potassium 4.1 Chloride 97 L Carbon Dioxide 34 H BUN 12 Creatinine 0.75 Estimated GFR > 60.0 BUN/Creatinine Ratio 16.0 Glucose 99 Calcium 8.6 Phosphorus 4.2 Magnesium 1.9 Discharge Plan Discharge Plan Patient Disposition: Home Discharge orders & Medications Prescriptions: New oxycodone-acetaminophen 5-325 mg Tablet 2 tab PO Q4HR PRN (Reason: Pain, Moderate (4-6)) Qty: 50 RF: 0 nicotine 21 mg/24 hr Patch 24 Hour 21 mg topical DAILY 60 Days Qty: 60 RF: 0 albuterol sulfate 90 mcg/actuation HFA aerosol inhaler 1 inhalation INHALATION QID PRN (Reason: shortness of breath or wheezing) Qty: 18 RF: 0 Continued ibuprofen 200 mg Capsule 800 mg PO BEDTIME PRN (Reason: Pain) RF: 0 Discontinued metronidazole 500 mg Tablet 250 mg PO Q8H RF: 0 ciprofloxacin HCl 500 mg Tablet 500 mg PO BID RF: 0 Follow up/Referrals: Thiago Patel MD [Primary Care Provider] - Michael Thomas MD [Physician] - 12/14/19 10:30 am (12/13 @ 10:[address] thomas ) Diet/Activity/Treatments Diet: Regular Activity: No lifting >20 lbs x 4 weeks. Walking only for exercise for 4 weeks. No [address] while taking narcotics. Skin/Wound/Dressing Care Report to your healthcare provider any signs of infection, such as:: chills, fever, increased pain, unusual drainage and unusual redness Visit Report/Discharge Packet Instructions: DI for Colectomy, Oxycodone, [facility]: Wound Care Visit Report Forms: Patient Portal/API, Stroke Signs & Symptoms Discharge Data Primary Care Provider: Thiago Patel Discharges patient from system. Discharge Date/Time: 12/07/19 14:30
== END 2019-12-07 14:30 | disposition home or self-care (01) | DRG 329 ==
LOC: ED 16:30 → AC 16:31 → ICU 16:44
PROVIDERS: Surgery; Admitting Provider Surgery; Emergency Provider Emergency Medicine; PCP Family Medicine; Referring Provider Emergency Medicine; Visit Provider Surgery
PROC: (CPT 49000; principal; 2019-12-02 09:30)
PROC: 0DJD8ZZ Inspection of Lower Intestinal Tract, Via Natural or Artificial Opening Endoscopic (ICD-10-PCS; CPT 45378; 2019-12-02 09:30)
DX: K56.600 Partial intestinal obstruction, unspecified as to cause (principal); G93.41 Metabolic encephalopathy; D62 Acute posthemorrhagic anemia; R34 Anuria and oliguria; R09.02 Hypoxemia; R00.0 Tachycardia, unspecified
CPT/HCPCS: 36415; 36430; 36592; 74018; 74177; 80048; 80053; 81003; 81015; 83605; 83690; 83735; 84100; 84145; 85014; 85018; 85025; 85610; 85730; 86850; 86900; 86901; 87040; 87507; 87635; 87797; 93005; 94640; 94762; 96365; 96367; 96375; 96376; 97116; 97162; 99284; 99406; P9016; J0330; J0696; J1100; J1170; J1630; J1650; J1885; J1940; J1956; J2060; J2250; J2405; J2704; J3010; J3410; J7050; J7613; Q9967

== ENCOUNTER → 2020-12-18 09:01 | Outpatient (CLI) | payer OTHER, SELFPAY ==
[2019-12-01 18:57] VITALS: BMI 29.6
[2020-12-18 11:53] LABS: COVID19 -Nasal RAPID Negative (Negative)
== END ==
PROVIDERS: PCP Family Medicine; Visit Provider Nurse Practitioner
DX: Z20.822 Contact with and (suspected) exposure to COVID-19 (principal); Z01.812 Encounter for preprocedural laboratory examination
CPT/HCPCS: 87635

== ENCOUNTER 2020-12-19 11:20 | Day surgery (SDC) | payer OTHER, SELFPAY ==
[2019-12-01 18:57] VITALS: BMI 29.6
[2020-12-19] VITALS (7 sets, daily range): BP systolic 133–170; BP diastolic 89–98; PULSE 80–96; RESP 12–18; TEMP 36.3–36.4; O2SAT 93–100; BMI 30.5
--- NOTE | 2020-12-19 12:35 | PM.PREOP ---
Pre-operative Note Interval Note History & Physical reviewed/Exam performed by Physician: Yes Changes to H&P: No
--- NOTE | 2020-12-19 12:40 | P.OP_ITS ---
Operative Date/Time/Diagnoses Date of procedure: 12/19/20 Time of procedure: 13:30 Pre-op diagnosis: Right basal thumb arthritis Post-op diagnosis: same Procedure & Clinicians Procedure: Right thumb arthroplasty Same procedure as scheduled: Yes Indications: Right basal thumb arthritis Surgeon: Roger Abernathy Click Yes if Unassisted: Yes Anesthesia Type: General Operative Notes Closure Type: primary Specimen(s): none sent Applied: implant(s) (Arthrex Tight rope) Estimated Blood Loss (mL): 0 Blood products transfused: none Tourniquet time (min): 60 Procedure in detail: On date of service, the patient was met in the holding area. The operative site was signed and witnessed by the OR staff. The surgery was once again discussed with patient, and any remaining questions Were answered fully. Patient was taken back to the operating theater and placed on the operating table in a supine position. Great care was taken to ensure that all bony prominences were properly padded. A well-padded tourniquet was placed up along the upper extremity. A timeout was performed verifying patient's name, procedure, and operative site. The arm was prepped and draped in the normal sterile fashion. An Esmarch was used to exsanguinate the limb and the tourniquet was turned up to 250 mm mercury. A 15 blade was used to incise the skin only in a dorsal radial position. Pickups and tenotomy 3 used to dissect down through the fascial tissue. Great care was taken to ensure that the branches off the superficial radial nerve root identified and protected. Next, an interval was made between EPB and APL. The recurrent branch of the radial artery was identified and p rotected. The capsular tissues surrounding the basal joints was opened and released around the trapezium and a 360? fashion. This gave us good visualization of the basal joint as well as the trapezial scaphoid joint. Significant arthritis at the basal joints but no sign of any arthritis at the trapezial scaphoid joint. Next the trapezium was removed as well as any potential osteophytes. The wound was then copiously irrigated to remove any remaining bony fragments. The thumb was then pulled out to length and a guidewire was passed between the 1st and 2nd metacarpal. The position of the guidewire was verified on the C- arm. A small incision was made at the exit point of the guidewire and a hemostat was used to bluntly dissect down. A guidewire was then passed all the way through. Endobutton attached to suture material was then passed through the bony tunnel using the guidewire. Next, a 2nd Endobutton was passed through the suture and then secured onto the 2nd metacarpal holding the thumb out to length providing a suspensionplasty of the basal joint. The wound was irrigated once again. A thick capsular closure was performed using 2-0 Ethibond. The rest of the wound was closed in a layered fashion. The hand was then cleaned, dried, and dressed. Patient was placed into a thumb spica splint. Patient was taken back to the PACU in stable condition. Complications: none Post-operative Condition: stable Disposition: PACU Plan for aftercare: Patient will be immobilized for 2 weeks. After 2 weeks to go into a removable brace at that point there will be no restrictions to range of motion of the wrist or the thumb.
[2020-12-19] MEDS: CEFAZOLIN 1 GM VIAL 2 GM IV (13:27)
--- NOTE | 2020-12-19 13:44 | SUR.OPER ---
Supine on padded OR bed, head on pillow, left arm secured on padded arm boards at <90 degrees abduction, right arm draped free on black hand table,legs uncrossed, safety belt at thigh, tape over blanket over lower legs.
[2020-12-19] MEDS: EPINEPHrine 1 MG/ML 0.15 MG INJ (13:51)
[2020-12-19] MEDS: BUPIVACAINE 0.5% (PF) VIAL 30 ML INJ (13:51)
== END 2020-12-19 15:13 | disposition home or self-care (01) ==
PROVIDERS: PCP Family Medicine; Referring Provider Orthopaedic Surgery; Visit Provider Orthopaedic Surgery
PROC: (CPT 26540; principal; 2020-12-19 13:15)
DX: M18.11 Unilateral primary osteoarthritis of first carpometacarpal joint, right hand (principal); F17.210 Nicotine dependence, cigarettes, uncomplicated
CPT/HCPCS: 25447; J0171; J0690; J2704; J3010

== ENCOUNTER → 2022-03-20 09:46 | Outpatient (CLI) | payer OTHER, SELFPAY ==
[2019-12-01 18:57] VITALS: BMI 29.6
[2022-03-20 10:58] LABS: COVID19 -Nasal RAPID Negative (Negative)
== END ==
PROVIDERS: PCP Family Medicine; Visit Provider Surgery
DX: Z01.812 Encounter for preprocedural laboratory examination (principal); Z20.822 Contact with and (suspected) exposure to COVID-19
CPT/HCPCS: 87635; C9803

== ENCOUNTER 2022-04-29 09:20 | Day surgery (SDC) | payer OTHER, SELFPAY ==
[2019-12-01 18:57] VITALS: BMI 29.6
--- NOTE | 2022-04-29 | PATH_ITS ---
[facility] Accession Number: [id number] No. of containers..01 Tissue . 01 Material submitted: . colon - ASCENDING COLON . 01 Diagnosis: Ascending Colon Polyp: Sessile serrated adenoma. ON LICENSE OF [facility] 05/05/2022 1443 Local . 01 Electronically signed: . Travis Hurley MD, PhD, Pathologist NPI- [id number] . 01 Gross description: . ASCENDING COLON: Received in formalin are 2 fragment(s) of cardona, soft tissue measuring 0.2 x 0.2 x 0.2 cm to 0.3 x 0.2 x 0.2 cm submitted entirely in 1 cassette(s) /[facility]I 04/30/2022 1938 Local . 01 Pathologist provided ICD-10: D12.2 . 01 CPT . 144693 Specimen Comment: A courtesy copy of this report has been sent to [phone] Performed at: 01 [facility] [address] [place] [address] [address], [place], [place] [id number] MD Adalberto Miller MD Phone: [phone]
--- NOTE | 2022-04-29 09:57 | P.HP_ITS ---
History of Present Illness History of Present Illness Chief complaint: Colonoscopy Narrative: Screening colonoscopy. Patient History Medical History Arthritis Colonoscopy planned Diverticulosis Gout Nocturia Numbness and tingling in both hands Unilateral primary osteoarthritis of first carpometacarpal joint, unspecified hand Surgical History H/O inguinal hernia repair History of carpal tunnel surgery of left wrist Hx of tonsillectomy S/P cervical spinal fusion [place] teeth removed Family & Social History Social History: household members spouse Tobacco & Substance use: Tobacco type cigarettes,cannabis/marijuana Smoking Status Current every day smoker alcohol intake current alcohol intake frequency 3 or more drinks per day Substance Use Type marijuana Meds Home Medications and Allergies Home Medications Medication Instructions Recorded Confirmed Type ibuprofen 200 mg capsule 800 mg PO BEDTIME PRN Pain 06/29/17 04/29/22 History Allergies Allergy/AdvReac Type Severity Reaction Status Date / Time No Known Drug Allergies Allergy Verified 04/29/22 09:41 Exam Narrative Exam Narrative: Oropharynx free of lesions Chest clear to auscultation percussion Cardiac exam reveals no S3 or murmur Assessment & Plan Assessment & Plan narrative: History of colon obstruction from severe diverticulitis. Status post colon resection. Need for follow-up colonoscopy to rule out neoplasia. Risks, benefits, alternatives have been explained. Time Spent With Patient Critical Care time: I spent a total of [] minutes of critical care time on this patient's care today; this time is exclusive of procedural time.
[2022-04-29 09:59] VITALS: BMI 31.3
--- NOTE | 2022-04-29 09:59 | PM.OP.COLON ---
Operative Date/Time/Diagnoses Date of procedure: 04/29/22 Pre-op diagnosis: See indication and findings Procedure & Clinicians Study performed: Colonoscopy Indications: Colorectal cancer screening Surgeon: Genie Joshua Procedure Notes Procedure in detail: After informed consent was obtained the patient was placed in left lateral decubitus position. The video colonoscope was introduced the rectum slowly advanced cecum. Preparation was good. On slow withdrawal mucosa was carefully examined. The scope was removed. The patient tolerated the procedure well. Blood loss none Complications none Sedation propofol Findings 1. Anastomosis in the sigmoid colon at 25 cm side to side. 2. 6 mm polyp in the ascending colon Jumbo biopsied x2 and removed 3. Mild internal hemorrhoids 4. Otherwise negative colonoscopy to cecum Will await these biopsy results. He will probably need follow-up colonoscopy in 5 years pending the results of the biopsy.
[2022-04-29 10:14] VITALS: BP 136/102; PULSE 96; RESP 16; TEMP 36.6; O2SAT 95
[2022-04-29] MEDS: LACTATED RINGERS 1,000 ML 42 ML IV (10:18)
[2022-04-29 10:55] VITALS: BP 111/85; PULSE 84; RESP 14; TEMP 36.2
[2022-04-29 11:00] VITALS: BP 129/88; PULSE 88; RESP 18; O2SAT 95
[2022-04-29 11:06] VITALS: BP 140/101; PULSE 89; RESP 18; O2SAT 96
[2022-04-29 11:13] VITALS: BP 134/85; PULSE 78; RESP 18; O2SAT 95
== END 2022-04-29 11:22 | disposition home or self-care (01) ==
PROVIDERS: PCP Family Medicine; Referring Provider Internal Medicine Gastroenterology; Visit Provider Internal Medicine Gastroenterology
PROC: 0DJD8ZZ Inspection of Lower Intestinal Tract, Via Natural or Artificial Opening Endoscopic (ICD-10-PCS; CPT 45378; principal; 2022-04-29 10:30)
DX: Z12.11 Encounter for screening for malignant neoplasm of colon (principal); K64.8 Other hemorrhoids; D12.2 Benign neoplasm of ascending colon
CPT/HCPCS: 45380; J2704

== ENCOUNTER → 2022-09-21 09:11 | Outpatient (CLI) | payer OTHER, SELFPAY ==
[2019-12-01 18:57] VITALS: BMI 29.6
[2022-09-21 09:54] LABS: HEMOLYSIS < 15 (0-50)
[2022-09-21 09:55] LABS: Hematocrit 52.1 % (41-53); Hemoglobin 18.3 g/dL (13.5-17.5); Mean Corpuscular HGB Conc 35.1 % (30-36); Mean Corpuscular Hemoglobin 31.9 PG (26-34); Platelet Count 322 X10^3/uL (150-400); Red Blood Cell Count 5.73 X10^6/uL (4.5-5.9); Red Cell Distribution Width 13.8 % (11.6-14.8); White Blood Cell Count 9.9 X10^3/uL (4.5-11.0)
[2022-09-21 10:02] LABS: Alanine Aminotransferase 43 IU/L (<50); Albumin 4.8 g/dL (3.5-5.0); Albumin Globulin Ratio 1.5 (1.0-2.8); Alkaline Phosphatase 89 U/L (38-126); Aspartate Aminotransferase 29 IU/L (17-59); BUN Creatinine Ratio 20.9 (6-22); Bilirubin Total 0.5 mg/dL (0.2-1.3); Blood Urea Nitrogen 14 mg/dL (9-20); Calcium 9.6 mg/dL (8.4-10.2); Carbon Dioxide 26 mmol/L (22-32); Chloride 100 mmol/L (98-107); Cholesterol 206 mg/dL (140-199); Estimated Glomerular Filt Rate > 60 mL/min (>60); Globulin 3.2 g/dL (1.7-4.1); Glucose 107 mg/dL (70-100); HDL Cholesterol 48 mg/dL (40-60); LDL Cholesterol Calculated 103 mg/dL (<100); Potassium 4.5 mmol/L (3.4-5.1); Sodium 136 mmol/L (137-145); Triglycerides 276 mg/dL (35-150)
[2022-09-21 10:31] LABS: TSH w/ Reflex to FT4 2.22 uIU/mL (0.47-4.68)
[2022-09-21 10:58] LABS: Prostate Specific Antigen 0.699 ng/mL (0.10-4.00)
== END ==
PROVIDERS: PCP Internal Medicine; Referring Provider Internal Medicine; Visit Provider Internal Medicine
DX: E78.2 Mixed hyperlipidemia (principal); I10 Essential (primary) hypertension; Z12.5 Encounter for screening for malignant neoplasm of prostate
CPT/HCPCS: 36415; 80053; 80061; 84153; 84443; 85027

== ENCOUNTER → 2024-04-03 09:37 | Outpatient (CLI) | payer OTHER, SELFPAY ==
[2019-12-01 18:57] VITALS: BMI 29.6
[2024-04-03 10:52] LABS: BUN Creatinine Ratio 18.4 (6-22); Blood Urea Nitrogen 14 mg/dL (9-20); Calcium 9.7 mg/dL (8.4-10.2); Carbon Dioxide 28 mmol/L (22-32); Chloride 100 mmol/L (98-107); Cholesterol 226 mg/dL (140-199); Estimated Glomerular Filt Rate > 60 mL/min (>60); Glucose 87 mg/dL (80-110); HDL Cholesterol 50 mg/dL (40-60); HEMOLYSIS < 15 (0-50); LDL Cholesterol Calculated 132 mg/dL (<100); Potassium 4.6 mmol/L (3.4-5.1); Sodium 137 mmol/L (137-145); Triglycerides 219 mg/dL (35-150)
== END ==
PROVIDERS: PCP Internal Medicine; Referring Provider Internal Medicine; Visit Provider Internal Medicine
DX: I10 Essential (primary) hypertension (principal); E78.2 Mixed hyperlipidemia; Z12.5 Encounter for screening for malignant neoplasm of prostate
CPT/HCPCS: 36415; 80048; 80061; G0103